=== PATIENT | female | born 1975 | race Two or more races ===

== ENCOUNTER 2023-07-15 15:40 | Outpatient (AMB) | payer OTHER, SELFPAY ==
--- NOTE | 2023-07-15 16:04 | A.OFFPSYCH_ITS ---
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 Allergies nortriptyline Adverse Reaction (Severe, Verified 07/15/23 16:18) Muscle Pain Medication List - Last Reconciled 07/15/23 by Kiarra Martin APRN albuterol sulfate 90 mcg/actuation (Ventolin HFA) inhalation azelastine intranasal baclofen mg PO budesonide-formoterol 80-4.5 mcg/actuation inhalation eszopiclone 3 mg PO BEDTIME PRN lorazepam 1 mg PO BID olanzapine 2.5 mg PO BEDTIME quetiapine 25 mg PO BEDTIME tizanidine 4 mg PO TID valacyclovir 500 mg PO DAILY HPI- Psychiatric Chief Complaint: depression, anxiety HPI Narrative: pt reports taking lunesta- helpful for sleep; pt very depressed, sad, anxious, worried, binge eating at night. no SI or HI . didmnot restart zyprexa 2.5mg yet due to on antibiotic for brinchitis Past Psychiatric History: she has been in and out therapy since age 5-6 yrs old; she has been seeing current therapist since for past 5 yr; no hx of hospitalization Pt dx with depression and PTSD she has had multiple somatic experiences since 11/07/15 including hips hurting, bloating, edema, back spasms, contractions swollen sinuses, fevers, stiffness, double vision, swollen lymph nodes, headaches, light sensitivity, dermographia- she has had multiple work ups by PCP, endocrinology, Infectious disease specialist, Dr. Xavi Burks all of which showed no medical etiology recently dx with fibromyalgia past med trials: trazodone- too sedating and nightmares hydroxyzine- stopped working seroquel- too sedating paxil- sedating prozac-no help zoloft- N& V ativan in past= positive benefit no overuse. seroquel- helpful but sedating and overeating cymbalta- mixed resutls ? efficacy lamictal belsomra lybalvi- good results ambien - helpful hydroxyzine -too sedating lexapro -ineffective Subjective Subjective Subjective Medication Compliance: Yes Side effects from medications: No Review of Systems Medical Review of Systems: unchanged Mental Status Exam Mental Status Exam Patient Appearance: Well Grooomed and Appropriate Patient Orientation: Person, Place, Time and Situation Level of Consciousness: Awake and Alert Patient Behavior: Appropriate and Cooperative Mood Description: Anxious Affect Description: Anxious Patient Cognition Impaired: No Ability to Follow Directions: Good Speech Pattern: Difficulty Finding Words and Soft-Spoken Memory Description: Intact Hallucinations: None Delusions: Not Present Thought Process: Intact Thought Content: positive for Intact and positive for Goal Oriented Judgement: Fair Assessment and Plan Assessment & Plan (1) Panic anxiety syndrome: Status: Acute Code(s): F41.0 - Panic disorder [episodic paroxysmal anxiety] (2) Chronic post-traumatic stress disorder (PTSD): Status: Acute Code(s): F43.12 - Post-traumatic stress disorder, chronic Plan zyprexa 2.5 mg daily lunesta 3 mg at bedtime ativan prn Medications: New lorazepam 1 mg PO BID 60 tabs 0RF Counseling and coordination of Care Pt. Self Management counseling: Maintenance-social rhythm, Sleep hygiene, Cognitive restructuring and General coping skills Medication management counseling: Effectiveness, Side effects, Dosing range, Duration, Drug interaction and Adherence Diagnosis and Prognosis Counseling: Accuracy of diagnosis, Prognosis over time, Impact of diagnosis on life functions, Impact of family relationship, Problematic behaviors secondary to diagnosis and Adequacy of current interventions Details: I spent 30 minutes reviewing the record, seeing the patient and documenting in the medical record. Counseling provided to the patient/caregiver as outlined below. Addressed patient/caregiver concerns regarding current medication regime including effective adherence. Addressed patient/caregiver concerns regarding diagnosis and prognosis including accuracy of diagnosis, prognosis over time, impact of diagnosis. Addressed patient/caregiver concerns regarding impact of recent stressors. [facility] Social History: lives alone Substance History: none Trauma History: yes childhood Coding Level of Care Code Est Pt Level 4 (54979) Diagnoses Panic anxiety syndrome F41.0 Chronic post-traumatic stress disorder (PTSD) F43.12
== END 2023-07-15 16:30 | disposition home or self-care (01) ==
LOC: HO.HOP 15:40
PROVIDERS: PCP Nurse Practitioner Family; Visit Provider Clinical Nurse Specialist Psychiatric/Mental Health
DX: F41.0 Panic disorder [episodic paroxysmal anxiety] (principal); F43.12 Post-traumatic stress disorder, chronic
CPT/HCPCS: 99214

== ENCOUNTER → 2023-07-15 15:40 | Outpatient (BNVA) | payer OTHER, SELFPAY | PROVIDERS: PCP Nurse Practitioner Family; Visit Provider Clinical Nurse Specialist Psychiatric/Mental Health | DX: F41.0 Panic disorder [episodic paroxysmal anxiety] (principal); F43.12 Post-traumatic stress disorder, chronic | CPT/HCPCS: 99212 ==

== ENCOUNTER 2024-01-24 10:05 | Outpatient (AMB) | payer OTHER, SELFPAY ==
--- NOTE | 2024-01-24 10:03 | MHC.OFFVISPS ---
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 Allergies nortriptyline Adverse Reaction (Severe, Verified 07/15/23 16:18) Muscle Pain Medication List - Last Reconciled 01/24/24 by Kiarra Martin APRN albuterol sulfate 90 mcg/actuation (Ventolin HFA) inhalation azelastine intranasal baclofen mg PO budesonide-formoterol 80-4.5 mcg/actuation inhalation eszopiclone 3 mg PO BEDTIME PRN olanzapine 2.5 mg PO BEDTIME tizanidine 4 mg PO TID valacyclovir 500 mg PO DAILY HPI- Psychiatric Chief Complaint: consult follow up HPI Narrative: javad reports struggling with sadness and anxiety; she reports increased interactions with family which are disappointing. Her family does not treat her with vakue. they often say negative things to her and even ognore her. she worries about them and tried to help them but they are not able to reciprocate. pt struggling with GI issues and pain; she sees her PCP today. pt has a pituitary tumor which is slowly increasing in size over the years. no intervention is planned as of yet. no SI or HI. Past Psychiatric History: she has been in and out therapy since age 5-6 yrs old; she has been seeing current therapist since for past 5 yr; no hx of hospitalization Pt dx with depression and PTSD she has had multiple somatic experiences since 11/07/15 including hips hurting, bloating, edema, back spasms, contractions swollen sinuses, fevers, stiffness, double vision, swollen lymph nodes, headaches, light sensitivity, dermographia- she has had multiple work ups by PCP, endocrinology, Infectious disease specialist, Dr. Xavi Burks all of which showed no medical etiology recently dx with fibromyalgia past med trials: trazodone- too sedating and nightmares hydroxyzine- stopped working seroquel- too sedating paxil- sedating prozac-no help zoloft- N& V ativan in past= positive benefit no overuse. seroquel- helpful but sedating and overeating cymbalta- mixed resutls ? efficacy lamictal belsomra lybalvi- good results ambien - helpful hydroxyzine -too sedating lexapro -ineffective Subjective Subjective Subjective Medication Compliance: Yes Side effects from medications: No Review of Systems Medical Review of Systems: unchanged Mental Status Exam Mental Status Exam Patient Appearance: Well Grooomed and Appropriate Patient Orientation: Person, Place, Time and Situation Level of Consciousness: Awake, Appropriate and Alert Patient Behavior: Appropriate and Cooperative Mood Description: Appropriate, Anxious and Sad Affect Description: Sad Patient Cognition Impaired: No Ability to Follow Directions: Good Speech Pattern: Clear and Appropriate Memory Description: Intact Hallucinations: None Delusions: Not Present Thought Process: Intact and Goal Oriented Thought Content: positive for Intact and positive for Goal Oriented Judgement: Good Assessment and Plan Assessment & Plan (1) Chronic post-traumatic stress disorder (PTSD): Status: Acute Code(s): F43.12 - Post-traumatic stress disorder, chronic (2) Panic anxiety syndrome: Status: Acute Code(s): F41.0 - Panic disorder [episodic paroxysmal anxiety] Plan continue medications and resume ativan prn for severe anxiety and insomnia Medications: New lorazepam (Ativan) 1 mg PO DAILY PRN 10 tabs 4RF anxiety 30 days Refilled olanzapine 2.5 mg PO BEDTIME 90 tabs 1RF eszopiclone 3 mg PO BEDTIME PRN 30 tabs 4RF sleep Counseling and coordination of Care Pt. Self Management counseling: Maintenance-social rhythm, Med illness tx adherence, Nutrition education and improvement, Sleep hygiene, Behavior activation, General coping skills and Problem solving Medication management counseling: Effectiveness, Side effects, Dosing range, Duration, Drug interaction and Adherence Diagnosis and Prognosis Counseling: Accuracy of diagnosis, Prognosis over time, Impact of diagnosis on life functions, Impact of family relationship, Problematic behaviors secondary to diagnosis and Adequacy of current interventions Details: I spent 40 minutes reviewing the record, seeing the patient and documenting in the medical record. Counseling provided to the patient/caregiver as outlined below. Addressed patient/caregiver concerns regarding current medication regime including effective adherence. Addressed patient/caregiver concerns regarding diagnosis and prognosis including accuracy of diagnosis, prognosis over time, impact of diagnosis. Addressed patient/caregiver concerns regarding impact of recent stressors. [facility] Social History: lives alone Substance History: none Trauma History: yes childhood Coding Level of Care Code Est Pt Level 4 (44748) Diagnoses Chronic post-traumatic stress disorder (PTSD) F43.12 Panic anxiety syndrome F41.0
== END 2024-01-24 10:52 | disposition home or self-care (01) ==
LOC: HO.HOP 10:05
PROVIDERS: PCP Nurse Practitioner Family; Visit Provider Clinical Nurse Specialist Psychiatric/Mental Health
DX: F43.12 Post-traumatic stress disorder, chronic (principal); F41.0 Panic disorder [episodic paroxysmal anxiety]
CPT/HCPCS: 99214

== ENCOUNTER → 2024-01-24 10:05 | Outpatient (BNVA) | payer OTHER, SELFPAY | PROVIDERS: PCP Nurse Practitioner Family; Visit Provider Clinical Nurse Specialist Psychiatric/Mental Health | DX: F43.12 Post-traumatic stress disorder, chronic (principal); F41.0 Panic disorder [episodic paroxysmal anxiety]; Z71.89 Other specified counseling | CPT/HCPCS: 99212 ==

== ENCOUNTER 2024-06-12 09:50 | Outpatient (AMB) | payer OTHER, SELFPAY ==
--- NOTE | 2024-06-12 10:07 | MHC.OFFVISPS ---
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 Allergies nortriptyline Adverse Reaction (Severe, Verified 07/15/23 16:18) Muscle Pain Medication List - Last Reconciled 06/12/24 by Kiarra Martin APRN albuterol sulfate 90 mcg/actuation (Ventolin HFA) inhalation azelastine intranasal baclofen mg PO budesonide-formoterol 80-4.5 mcg/actuation inhalation eszopiclone 3 mg PO BEDTIME PRN lorazepam (Ativan) 1 mg PO DAILY PRN 30 days olanzapine 2.5 mg PO BEDTIME tizanidine 4 mg PO TID valacyclovir 500 mg PO DAILY HPI- Psychiatric Chief Complaint: depression HPI Narrative: pt here for followup for anxiety and PTSD pt reports improvement PHQ9=9 and GAD7= 5 pt reports able to use coping skills has social support engaged in self care activities no medical changes no side effects no karly, no SI or HI. Past Psychiatric History: she has been in and out therapy since age 5-6 yrs old; she has been seeing current therapist since for past 5 yr; no hx of hospitalization Pt dx with depression and PTSD she has had multiple somatic experiences since 11/07/15 including hips hurting, bloating, edema, back spasms, contractions swollen sinuses, fevers, stiffness, double vision, swollen lymph nodes, headaches, light sensitivity, dermographia- she has had multiple work ups by PCP, endocrinology, Infectious disease specialist, Dr. Xavi Burks all of which showed no medical etiology recently dx with fibromyalgia past med trials: trazodone- too sedating and nightmares hydroxyzine- stopped working seroquel- too sedating paxil- sedating prozac-no help zoloft- N& V ativan in past= positive benefit no overuse. seroquel- helpful but sedating and overeating cymbalta- mixed resutls ? efficacy lamictal belsomra lybalvi- good results ambien - helpful hydroxyzine -too sedating lexapro -ineffective Subjective Subjective Subjective Medication Compliance: Yes Side effects from medications: No Review of Systems Medical Review of Systems: unchanged Mental Status Exam Mental Status Exam Patient Appearance: Well Grooomed and Appropriate Patient Orientation: Person, Place, Time and Situation Level of Consciousness: Awake, Appropriate and Alert Patient Behavior: Appropriate and Cooperative Mood Description: Calm, Happy, Appropriate and Sad (about loss of act and relationship changes) Affect Description: Calm and Appropriate Patient Cognition Impaired: No Ability to Follow Directions: Good Speech Pattern: Clear, Appropriate and Soft-Spoken Memory Description: Intact Hallucinations: None Delusions: Not Present Thought Process: Intact and Goal Oriented Thought Content: positive for Intact, positive for Goal Oriented and positive for Loose Associations Judgement: Fair Assessment and Plan Assessment & Plan (1) Chronic post-traumatic stress disorder (PTSD): Status: Acute Code(s): F43.12 - Post-traumatic stress disorder, chronic (2) Panic anxiety syndrome: Status: Acute Code(s): F41.0 - Panic disorder [episodic paroxysmal anxiety] Medications: Refilled eszopiclone 3 mg PO BEDTIME PRN 30 tabs 4RF sleep olanzapine 2.5 mg PO BEDTIME 90 tabs 1RF Counseling and coordination of Care Pt. Self Management counseling: Maintenance-social rhythm, Mindfulness, Mod caffeine/ETOH intake, Nutrition education and improvement and Problem solving Medication management counseling: Effectiveness, Side effects, Dosing range, Duration, Drug interaction and Adherence Diagnosis and Prognosis Counseling: Accuracy of diagnosis, Prognosis over time, Impact of diagnosis on life functions, Problematic behaviors secondary to diagnosis and Adequacy of current interventions Details: I spent 35 minutes reviewing the record, seeing the patient and documenting in the medical record. Counseling provided to the patient/caregiver as outlined below. Addressed patient/caregiver concerns regarding current medication regime including effective adherence. Addressed patient/caregiver concerns regarding diagnosis and prognosis including accuracy of diagnosis, prognosis over time, impact of diagnosis. Addressed patient/caregiver concerns regarding impact of recent stressors. [facility] Social History: lives alone Substance History: none Trauma History: yes childhood Coding Level of Care Code Est Pt Level 4 (11984) Diagnoses Chronic post-traumatic stress disorder (PTSD) F43.12 Panic anxiety syndrome F41.0
--- OUTSIDE RECORDS SUMMARY | 2024-06-12 10:56 | XMS_ITS | Clinical Summary ---
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 Active erenumab-aooe (Aimovig Autoinjector) 140 mg/mL injection Inject into the skin. Active azelastine (ASTELIN) 137 mcg (0.1 %) nasal spray 137 mcg by Nasal route daily. Active duloxetine HCl (DULOXETINE ORAL) Take 30 mg by mouth daily. Active LORAZEPAM ORAL Take by mouth. Active meloxicam (MOBIC) 15 mg tablet Take 1 Tablet by mouth daily. Active pantoprazole sodium (PANTOPRAZOLE ORAL) Take by mouth. Active cyclobenzaprine (FLEXERIL) 5 mg tabletIndication s:Left shoulder pain, unspecified chronicity Take 1 tablet (5 mg total) by mouth 3 (three) times a day if needed for muscle spasms. 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 (CMS/HCC V24, CMS/HCC V28) 09/10/2023 Encounters Date Type Department Care Team Description 05/01/2024 Telephone Orthopedic Surgery [facility] [address] [facility] [address] [place] [address] Kamila Johnson MA 04/27/2024 4:00 PM EDT Office Visit Orthopedic Surgery [facility] [address] [facility] [address] [place] [address] Barby Rivera MD Left shoulder pain, unspecified chronicity (Primary Dx) 03/31/2024 Telephone Orthopedic Surgery [facility] [address] [facility] [address] [place] [address] Barby Rivera MD Pain Upper Left Arm from Last 3 Months Social History Tobacco Use Types Packs/Day Years Used Date Smoking Tobacco: Never Assessed Comments Unknown Sex and Gender Information Value Date Recorded Sex Assigned at Not on file Legal Sex Female 3:02 PM EST Gender Identity Not on file Sexual Orientation Not on file Last Filed Vital Signs Vital Sign Reading Time Taken Comments Blood Pressure - - Pulse - - Temperature - - Respiratory Rate - - Oxygen Saturation - - Inhaled Oxygen Concentration - - Weight 87.5 kg (193 lb) 04/27/2024 3:50 PM EDT Height 167.6 cm (5' 5.98 ) 04/27/2024 3:50 PM ED T Body Mass Index 31.17 04/27/2024 3:50 PM EDT Plan of Treatment Health Maintenance Due Date Last Done Comments Breast Cancer Screening 1976 DTaP,Tdap,and Td Vaccines (1 - Tdap) 10/04/1995 Hepatitis B Vaccines (1 of 3 - 19+ 3-dose series) 10/04/1995 Cervical Cancer Screening: P ap Smear 1997 Cholesterol Screening (Lipid Panel) 01/07/2022 Colorectal Cancer Screening: Colonoscopy 01/07/2022 Depression Screening 01/07/2022 HIV Screening 01/07/2022 Hepatitis C Screening 01/07/2022 Medicare Annual Wellness Visit 01/07/2022 Social Influencers of Health Screening 01/07/2022 COVID-19 Vaccine (4 - 2023-2 5 season) 2023 01/08/2021, 07/31/2020, 07/10/2020 Influenza Vaccine (Season Ended) 2024 HIB Vaccines Aged Out No longer eligi ble based on patient's age to complete this topic HPV Vaccines Aged Out No longer eligi ble based on patient's age to complete this topic Hepatitis A Vaccines Aged Out No long er eligible based on patient's age to complete this topic IPV Vaccines Aged Out No longer eligi ble based on patient's age to complete this topic MMR Vaccines Aged Out No longer eligi ble based on patient's age to complete this topic Meningococcal ACWY Vaccine Aged Out N o longer eligible based on patient's age to complete this topic Meningococcal B Vaccine Aged Out No l onger eligible based on patient's age to complete this topic Pneumococcal Vaccine: Pediatrics (0 to 5 Years) and At-Risk Patients (6 to 64 Years) Aged Out No longer eligible b ased on patient's age to complete this topic RSV Immunization Patients Under 20 months Aged Out No longer eligible b ased on patient's age to complete this topic Varicella Vaccines Aged Out No longer eligible based on patient's age to complete this topic Insurance [facility] MEDICARE Member Subscriber Plan / Payer (Ef fective 2019-Present) Name:Cristobal Emmanuella Relation to Subscriber:Self Name:Cristobal Emmanuella Payer ID:[id number] Group ID:[id number] Type:Not on file Address: [place] [address] [address] [address] Care 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
--- OUTSIDE RECORDS SUMMARY | 2024-06-12 10:57 | XMS_ITS | Data Portability ---
Author Organization [place] [facility], Allergy Address [address] [place] [id number] Care Team Providers Care Shirt Trimmer Name Role Phone BRAVO PAIGE Primary Care Provider Assessment Encounter Date Assessment Date Assessment LastModified by Organization Details LastModified Time 09/13/2023 09/13/2023 Discussed her symptoms as a likely related to her smoking. Encouraged her to initiate use of nasal saline. She had a [employer] irrigation system at home but had some concern about contamination. She is a self-admitted germaphobe, mild OCD. Smoking cessation also highly encouraged, she will make an attempt by her birthday later this month to complete smoking cessation. She is also concerned about some swelling of the soft tissue over her nose. She has met with video recorder mechanic in the past who pointed out she has hyperpigmentation over her malar region which is benign. I do not believe there is any underlying pathology of the swelling of her soft tissue over her nose, perhaps may be it represents aging changes. By the end of the visit she was pleased with the outcome and wishes to follow-up as needed [email or web address] Not available 09/13/2023 15:02:53 Plan of Treatment Reminders Order Date Submit Date Provider Last Modified By Organization Details Last Modified Time Details Appointments None record ed. Lab None record ed. Referral None record ed. Procedures None record ed. Surgeries None record ed. Imaging None record ed. Medication Orders None record ed. Patient TargetsNo targets recorded. Patient InstructionsNo instructions recorded. Reason for Referral None Reported. Results Created Date Observation Date Name Description Value Unit Range Abnormal Flag Note LastModifiedBy Organization Detail LastModifiedTime 09/29/19 24 10/10/2019 imagi ng/di agnos tic resul t No observ ation record ed. [email or web address] Not Available 21:36:43 Result Notes None recorded. 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 ; Note: Date Diagnosed : 09/10/2017 10:06 AM (L50.3) Not Available [facility] 4 02:31:00 Otalgia of right ear 4800124193 Active 2020 Otalgia, right ear; Note: Date Diagnosed : 11/05/2020 2:27 PM (H92.01) Not Available [facility] 4 02:30:47 Pain of right temporoma ndibular joint 51020764650 883308 Active 2020 Arthralgi a of right temporoma ndibular joint; Note: Date Diagnosed : 11/05/2020 2:37 PM (M26.621) Not Available [facility] 4 02:30:38 Headache 60024499 Active 2016 Facial pain NOS; Note: Date Diagnosed : 12/14/2016 2:15 PM (R51) Not Available [facility] 4 02:30:51 Allergic rhinitis 65777889 Active 2019 Allergic rhinitis, unspecifi ed; Note: Date Diagnosed : 05/16/2019 3:40 PM (J30.9) Not Available [facility] 4 02:30:39 Nasal congestio n 76308594 Active 2016 Nasal congestio n; Note: Date Diagnosed : 12/14/2016 2:15 PM (R09.81) Not Available [facility] 4 02:30:51 Posterior rhinorrhe a 88036937 Active 2022 Postnasal drip; Note: Date Diagnosed : 03/09/2022 1:33 PM (R09.82) Not Available [facility] 4 02:30:43 Bilateral disorder of Eustachia n tubes 53480467405 51931 Active 2019 Other specified disorders of Eustachia n tube, bilateral ; Note: Date Diagnosed : 08/01/2019 3:22 PM (H69.83) Not Available [facility] 4 02:30:40 Migraine 60605129 Active 2016 Other migraine, not intractab le, without status migrainos us; Note: Date Diagnosed : 12/14/2016 4:11 PM (G43.809) Not Available [facility] 4 02:30:42 Tobacco dependenc e caused by cigarette s 85515505595 216539 Active 2023 ASHU FUENTES MD [address] [place] [address], [place], [address] , [facility] - [facility] 4 15:01:28 Problem Notes None recorded. Procedures Surgical History None recorded. Imaging Results Imaging Date Name Status LastModified by Organiz ation Details LastModified Time 10/10/2019 imaging/diag nostic result completed [email or web address] Information not available 09/29/2023 21:36:43 Procedure Notes None recorded. Medical Equipment None Reported. Medications Name Sig Start Date Stop Date Status Note LastModified by Organization Details LastModified Time quetiapine 25 mg tablet TAKE 1 TABLET BY MOUTH EVERYDAY AT BEDTIME active Not Available Not Available No t Available cyclobenza daniel 10 mg tablet TAKE 1 TABLET BY MOUTH EVERYDAY AT BEDTIME active Not Available Not Available No t Available prednisone 10 mg tablet PLEASE SEE ATTACHED FOR DETAILED DIRECTION S active Not Available Not Available No t Available doxycyclin e hyclate 100 mg capsule TAKE 1 CAPSULE BY MOUTH TWICE A DAY FOR 7 DAYS active Not Available Not Available No t Available cetirizine 10 mg tablet TAKE 1 TABLET BY MOUTH TWICE A DAY FOR 7 DAYS active Not Available Not Available No t Available azithromyc in 250 mg tablet TAKE 2 TABLETS BY MOUTH EVERY DAY FOR 1 DAY THEN TAKE 1 TABLET DAILY FOR 4 DAYS active Not Available Not Available No t Available ibuprofen 800 mg tablet TAKE 1 TABLET BY MOUTH THREE TIMES A DAY NEEDED FOR PAIN FOR 10 DAYS active Not Available Not Available No t Available tizanidine 4 mg tablet TAKE 1 TAB UP TO 3 TIMES A DAY NEEDED FOR MUSCLE SPASMS/ CRAMPS. DO NOT DRIVE active Not Available Not Available No t Available fluconazol e 150 mg tablet TAKE 1 TABLET BY MOUTH FOR 1 DAY active Not Available Not Available No t Available clarithrom ycin 500 mg tablet TAKE 1 TABLET BY MOUTH EVERY 12 HOURS FOR 10 DAYS active Not Available Not Available No t Available meloxicam 15 mg tablet TAKE 1 TABLET BY MOUTH EVERY DAY WITH A MEAL active Not Available Not Available No t Available prednisone 20 mg tablet TAKE 2 TABLETS BY MOUTH EVERY DAY FOR 5 DAYS active Not Available Not Available No t Available valacyclov ir 500 mg tablet TAKE 1 TABLET BY MOUTH EVERY DAY active Not Available Not Available No t Available sulfametho xazole 800 mg-trimeth oprim 160 mg tablet TAKE 1 TABLET BY MOUTH TWICE A DAY FOR 10 DAYS active Not Available Not Available No t Available olanzapine 2.5 mg tablet TAKE ONE TABLET IN AM WITH FOOD active Not Available Not Available No t Available doxycyclin e monohydrat e 100 mg tablet TAKE 1 TABLET (ORAL) 2 TIMES PER DAY FOR 7 DAYS CAN CAUSE EXTREME SENSITIVI TY TO THE SUN. active Not Available Not Available No t Available topiramate 25 mg sprinkle capsule TAKE 1 CAPSULE BY MOUTH AT BEDTIME active Not Available Not Available No t Available nicotine (polacrile x) 4 mg gum CHEW 1 EVERY 2 HOURS NEEDED FOR SMOKING CESSATION active Not Available Not Available No t Available nortriptyl ine 10 mg capsule TAKE ONE CAP AT NIGHT FOR 5 NIGHTS AND INCREASE TO TWO CAPS AT NIGHT IF NEEDED FOR PAIN active Not Available Not Available No t Available clotrimazo le-betamet hasone 1 %-0.05 % topical cream APPLY TO AFFECTED & SURROUNDI NG AREA TWICE A DAY FOR 2 WEEKS TOPICALLY IN THE MORNING AND EVENING active Not Available Not Available No t Available lorazepam 1 mg tablet TAKE 1 TABLET TWICE DAILY NEEDED FOR ANXIETY (HOLD FOR SEDATION OR DIZZINESS ) active Not Available Not Available No t Available azelastine 137 mcg (0.1 %) nasal spray SPRAY 2 SPRAYS IN BOTH NOSTRILS ONCE DAILY NEEDED FOR ALLERGIES active Not Available Not Available No t Available methylpred nisolone 4 mg tablets in a dose pack TAKE 6 TABLETS ON DAY 1 DIRECTED ON PACKAGE AND DECREASE BY 1 TAB EACH DAY FOR A TOTAL OF 6 DAYS active Not Available Not Available No t Available ipratropiu m bromide 42 mcg (0.06 %) nasal spray PLEASE SEE ATTACHED FOR DETAILED DIRECTION S active Not Available Not Available No t Available fluticason e propionate 50 mcg/actuat ion nasal spray,susp ension 2019 active Medicatio n ID: [id number] Du ration Value: 30 Brand Name: fluticaso ne propionat e Send Method: E-Prescri bed Subs Allowed: subs OK Specia l Instructi on: USE 1 SPRAY IN EACH NOSTRIL TWICE A DAY Medic ationGene ricName: fluticaso ne propionat e Not Available Not Available Not Available naratripta n 2.5 mg tablet TAKE 1 TABLET BY MOUTH ONCE NEEDED FOR MIGRAINE HEADACHE (MAY REPEAT ONCE IN 4 HOURS IF NEEDED) active Not Available Not Available No t Available Ventolin HFA 90 mcg/actuat ion aerosol inhaler TAKE 2 PUFFS BY MOUTH EVERY 6 HOURS NEEDED WHEEZING/ SHORTNESS OF BREATH active Not Available Not Available No t Available Allergy Relief D12 5 mg-120 mg tablet,ext ended release TAKE 1 TABLET BY MOUTH EVERY 12 HOURS FOR 10 DAYS active Not Available Not Available No t Available duloxetine 30 mg capsule,de layed release TAKE 1 CAPSULE BY MOUTH AT NIGHT FOR 5 DAYS FOR PAIN MAY INCREASE TO 2 CAPSULES AT NIGHT IF NEEDED active Not Available Not Available No t Available eszopiclon e 3 mg tablet TAKE 1 TABLET (3 MG) BY MOUTH ONE TIME AT BEDTIME active Not Available Not Available No t Available PreviDent 5000 Sensitive 1.1 %-5 % dental paste PLEASE SEE ATTACHED FOR DETAILED DIRECTION S active Not Available Not Available No t Available budesonide -formotero l HFA 80 mcg-4.5 mcg/actuat ion aerosol inhaler INHALE 2 PUFFS 2 TIMES A DAY, NEEDED FOR WHEEZE/SH ORTNESS OF BREATH,IN STR:J45 active Not Available Not Available No t Available lamotrigin e ER 100 mg tablet,ext ended release 24 hr 2019 active Medicatio n ID: [id number] Du ration Value: 90 Brand Name: lamotrigi ne Send Method: E-Prescri bed Subs Allowed: subs OK Specia l Instructi on: TAKE 1 TABLET BY MOUTH EVERY MORNING M edication GenericNa me: lamotrigi ne Not Available Not Available Not Available baclofen 5 mg tablet TAKE 1 TABLET BY MOUTH THREE TIMES A DAY active Not Available Not Available No t Available Aimovig Autoinject or 140 mg/mL subcutaneo us auto-injec tor 140 MG SUBCUTANE OUS INJECTION EVERY 28 DAYS active Not Available Not Available No t Available Lybalvi 5 mg-10 mg tablet TAKE 1 TABLET DAILY active Not Available Not Available No t Available Vitals Date Recorded Body height Body mass index (BMI) Body weight Provider Name and Address Organization Details Last Updated DateTime 09/13/2023 167.64 cm 30.7 kg/m2 34189.55 g Fide Gallegos [place] - [facility] 09/13/2023 14:40:22 Social History None recorded. Functional Status None recorded. Mental Status None recorded. Family History Nothing Reported. Medical History No medical history recorded. Gynecological HistoryNo gynecological history recorded. Obstetrics History GPAL:G 0 P 0 0 0 0 Past Encounters Encounter ID Performer Location Encounter Start Date Encounter Closed Date Diagnosis/Indication Diagnosis SNOMED-CT Code Diagnosis ICD10 Code Diagnosis Note [id number] ASHU FUENTES MD [facility] [address] [phone] 09/13/2023 14:04:09 09/13/2023 15:02:08 Posterior rhinorrhea 51019733 R09.82 Tobacco de pendence caused by cigarettes 0593701935 4048165 F17.210 Health Concerns Section Related Observation LastModified by Organization Detai ls LastModified Time None Recorded Concern Status LastModified by Organization Details LastModified Time None Recorded Advance Directives Directive None Recorded Payers Encounter Date Sequence Insurance Name Policy Number Policy Lebron Covered Member ID Lebron Member ID Guarantor Name 09/13/2023 1 [facility] - DOS ON OR AFTER 2022 - MEDICARE ADVANTAGE [place] (MEDICARE REPLACEMENT/ADV ANTAGE - PPO) Lorelei Emmanuel [id number] Lorelei Emmanuel Notes Date Note Type Note Provider Name and Address Organization Details Recorded Time 09/13/2023 text/html swollen skin ove r dorsum of nose.sees urgent care in [place] for sinus infections.sx of white mucus PNDclears up with ABx for 3+ months 10/04/2019 ct temporal bone xoran -mastoid air cells are clear, few opacified right-sided ethmoid air cells. 05/04/2019 RAST positive for birch, niurka nut, dust, [place] grass, hickory tree, oak - pt declined immunotherapy in past previous trial of atrovent, azelastine pmhx - migraine and neuralgiatobacco - 1/2ppdenrolling in acupuncture, drinking more waterbusy caring for her mother who was just dx with breast ca ASHU FUENTES MD [address] [place] [address],[place] [address], [place], [address], [place] - [facility] 09/13/2023 15:03:06 OBGyn Episode No OBEpisode recorded.
--- OUTSIDE RECORDS SUMMARY | 2024-06-12 10:57 | XMS_ITS | Data Portability ---
Author Organization [employer] [facility], Ut in - [facility] Address [address] [place] [phone] Care Team Providers Care Pairer Substandard Name Role Phone HIM CCA OTHER Assessment Encounter Date Assessment Date Assessment LastModified by Organization Details LastModified Time 03/11/2024 03/11/2024 I provided real -time medical direction via phone for this encounter and was available for additional phone-based assistance as needed. I have reviewed and agree with the Assessment and Plan as documented by the Offset Machine Operator. Patient given the opportunity to ask questions. Our service contacted for an assessment of: Viral URI symptoms and right ear pain As per above, patient with approximately several days of viral URI symptoms and developed into right ear pain. Denies fever or chills. Denies chest pain, shortness of breath, dyspnea on exertion. Positive nasal congestion and dry cough. Positive sick contacts. Per lab analyst on the scene, vital signs are stable and patient is afebrile. No wheezing heard on exam. COVID and Flu are both negative. No increased work of breathing and no distress. Impression: Common cold and viral URI Plan: Continue with [id number] medications to control symptoms. Red flags discussed as to when to seek a higher level care. Allergies: Reviewed PCP f/u: We discussed the diagnostic uncertainty of home visits and the risk associated with this. In this case, the patient and I felt this to be an acceptable and reasonable amount of risk given the benefit of avoiding an ED visit. We discussed the need to seek care urgently/emergen tly in the setting of any new or worsening serious symptoms, particularly fever chills [email or web address] Not available 03/11/2024 15:35:12 Plan of Treatment Reminders Order Date Submit Date Provider Last Modified By Organization Details Last Modified Time Details Appointments None recorded. Lab rapid SARS CoV 2 Ag, QL IA, respiratory specimen 2024 025 [facility], [address] [place] [address], [phone] 5 21:48:55 rapid flu (A+B) 2024 025 Critical access hospital, [address] [place] [address], [phone] 5 21:49:11 rapid SARS CoV 2 Ag, QL IA, respiratory specimen [address], [address] [place] [address], [id number] 5 15:33:38 rapid flu (A+B) [address], [address] [place] [address], [phone] 15:33:38 Referral None recorded. Procedures None recorded. Surgeries None recorded. Imaging None recorded. Medication Orders amoxicillin 875 mg-potassiu m clavulanate 125 mg tablet 2024 025 [id number] [address] [place], [address], 5 20:12:06 amoxicillin 875 mg-potassiu m clavulanate 125 mg tablet 2024 025 [facility] [address] [place], [address], 5 20:12:04 Lactobacill us acidophilus 1 billion cell tablet 2024 025 [id number] [address] [place], [address], 5 20:12:06 acetaminoph en 500 mg tablet 2024 025 [facility] [address] [place], [address], 5 20:12:04 acetaminoph en 325 mg tablet 2024 025 [id number] [address] [facility] [place], [address], 20:12:07 amoxicillin 875 mg tablet [address] [id number], [address] [place], [address], 15:33:39 Patient TargetsNo targets recorded. Patient InstructionsNo instructions recorded. Reason for Referral None Reported. Results Created Date Observation Date Name Description Value Unit Range Abnormal Flag Note LastModifiedBy Organization Detail LastModifiedTime 03/11/1903/11/2024 rapid flu (A+B) Flu negati ve Not Available [facility] ed [address] [place] [address], [phone] 03/11/2024 15:32:29 03/11/19 25 03/11/2024 rapid SARS CoV 2 Ag, QL IA, respi rator y speci men rapid SARS CoV 2 Ag, QL IA, respiratory specimen negati ve Not Available [facility] ed [address] [place] [address], [phone] 03/11/2024 15:32:28 Result Notes None recorded. Medical Equipment None Reported. Allergies Allergen ID Allergen Name Allergen Category Reaction Reaction Severity Criticality Documentation Date Start Date Code Code System Note Provider Name and Address Organization Details Recorded Time 39296 nortripty line medicatio n Not available Not available Not available 03/11/2024 7531 RxNorm Not Available [facility] - production 09:37:31 Medications Name Sig Start Date Stop Date Status Note LastModified by Organization Details LastModified Time quetiapine 25 mg tablet TAKE 1 TABLET BY MOUTH EVERYDAY AT BEDTIME active Not Available Not Available No t Available acetaminophe n 325 mg tablet TAKE 2 TABLETS BY MOUTH EVERY 6 HOURS NEEDED FOR 5 DAYS active Not Available Not Available No t Available prednisone 10 mg tablet TAKE 5 TABS BY MOUTH X 2 DAYS THEN DECREASE BY 1 TAB EVERY 2 DAYS UNTIL COMPLETE active Not Available Not Available No t Available azithromycin 250 mg tablet TAKE 2 TABLETS BY MOUTH EVERY DAY FOR 1 DAY THEN TAKE 1 TABLET DAILY FOR 4 DAYS active Not Available Not Available No t Available ibuprofen 800 mg tablet TAKE 1 TABLET BY MOUTH THREE TIMES A DAY NEEDED FOR PAIN FOR 10 DAYS active Not Available Not Available Not Available tizanidine 4 mg tablet TAKE 1 TAB UP TO 3 TIMES A DAY NEEDED FOR MUSCLE SPASMS/ CRAMPS. DO NOT DRIVE active Not Available Not Available No t Available fluconazole 150 mg tablet TAKE 1 TABLET BY MOUTH ONCE. TAKE ADDITIONAL TABLET ORALLY, IF SYMPTOMS DONT IMPROVE IN 72 HOURS active Not Available Not Available No t Available meloxicam 15 mg tablet TAKE 1 TABLET BY MOUTH EVERY DAY active Not Available Not Available No t Available valacyclovir 500 mg tablet TAKE 1 TABLET BY MOUTH EVERY DAY active Not Available Not Available No t Available sulfamethoxa zole 800 mg-trimethop rim 160 mg tablet TAKE 1 TABLET BY MOUTH EVERY 12 HOURS FOR 10 DAYS active Not Available Not Available Not Available olanzapine 2.5 mg tablet TAKE 1 TABLET BY MOUTH BEDTIME active Not Available Not Available No t Available doxycycline monohydrate 100 mg tablet TAKE 1 TABLET (ORAL) 2 TIMES PER DAY FOR 7 DAYS CAN CAUSE EXTREME SENSITIVITY TO THE SUN. active Not Available Not Available Not Available amoxicillin 875 mg tablet TAKE 1 TABLET BY MOUTH EVERY 12 HOURS FOR 5 DAYS active Not Available Not Available N ot Available famotidine 20 mg tablet PLEASE SEE ATTACHED FOR DETAILED DIRECTIONS active Not Available Not Available N ot Available doxycycline monohydrate 100 mg capsule active Not Available Not Available Not Available pantoprazole 40 mg tablet,delay ed release TAKE 1 TABLET BY MOUTH TWICE A DAY active Not Available Not Available No t Available nystatin 100,000 unit/gram topical cream APPLY TO INFRAMAMMAR Y AREA TWICE DAILY NEEDED UNTIL CONTROLLED THEN WEAN OFF. active Not Available Not Available No t Available clotrimazole -betamethaso ne 1 %-0.05 % topical cream APPLY TO AFFECTED & SURROUNDING AREA TWICE A DAY FOR 2 WEEKS TOPICALLY IN THE MORNING AND EVENING active Not Available Not Available No t Available hydrocortiso ne 2.5 % topical cream APPLY TO INFRAMAMMAR Y AREA TWICE A DAY NEEDED FLARES, DECREASE SYMPTOMS IMPROVE active Not Available Not Available No t Available lorazepam 1 mg tablet TAKE 1 TABLET BY MOUTH DAILY NEEDED FOR ANXIETY FOR 30 DAYS active Not Available Not Available Not Available azelastine 137 mcg (0.1 %) nasal spray SPRAY 2 SPRAYS IN BOTH NOSTRILS ONCE DAILY NEEDED FOR ALLERGIES active Not Available Not Available No t Available methylpredni solone 4 mg tablets in a dose pack TAKE 6 TABLETS ON DAY 1 DIRECTED ON PACKAGE AND DECREASE BY 1 TAB EACH DAY FOR A TOTAL OF 6 DAYS active Not Available Not Available No t Available albuterol sulfate HFA 90 mcg/actuatio n aerosol inhaler TAKE 2 PUFFS BY MOUTH EVERY 6 HOURS NEEDED WHEEZING/SH ORTNESS OF BREATH active Not Available Not Available No t Available naratriptan 2.5 mg tablet TAKE 1 TABLET BY MOUTH ONCE NEEDED FOR MIGRAINE HEADACHE. MAY REPEAT ONCE IN 4 HOURS IF NEEDED active Not Available Not Available No t Available chlorhexidin e gluconate 4 % topical liquid APPLY TO GROIN 2-3X A WEEK active Not Available Not Available No t Available ipratropium bromide 21 mcg (0.03 %) nasal spray INSTILL 2 SPRAYS INTO EACH NOSTRIL DAILY AT BEDTIME active Not Available Not Available No t Available amoxicillin 875 mg-potassium clavulanate 125 mg tablet TAKE 1 TABLET BY MOUTH TWICE A DAY FOR 7 DAYS active Not Available Not Available No t Available tobramycin 0.3 %-dexamethas one 0.1 % eye drops,suspen fidencio INSTILL 1 DROP INTO BOTH EYES FOUR TIMES A DAY SHAKE WELL active Not Available Not Available No t Available cyclobenzapr ine 5 mg tablet TAKE 1 TABLET BY MOUTH 3 TIMES A DAY IF NEEDED FOR MUSCLE SPASMS. active Not Available Not Available No t Available Allergy Relief D12 5 mg-120 mg tablet,exten ded release TAKE 1 TABLET BY MOUTH EVERY 12 HOURS FOR 10 DAYS active Not Available Not Available Not Available duloxetine 30 mg capsule,sheila yed release TAKE 1 CAPSULE BY MOUTH AT NIGHT FOR 5 DAYS FOR PAIN MAY INCREASE TO 2 CAPSULES AT NIGHT IF NEEDED active Not Available Not Available No t Available eszopiclone 3 mg tablet TAKE 1 TABLET BY MOUTH BEDTIME NEEDED FOR SLEEP active Not Available Not Available No t Available Lactobacillu s acidophilus 1 billion cell tablet Take 1 tablet twice a day by oral route for 14 days. 2024 active Not Available Not Available Not Avai lable tizanidine 4 mg capsule TAKE 1 CAPSULE BY MOUTH EVERY DAY AT BEDTIME FOR 90 DAYS active Not Available Not Available No t Available budesonide-f ormoterol HFA 80 mcg-4.5 mcg/actuatio n aerosol inhaler INHALE 2 PUFFS 2 TIMES A DAY, NEEDED FOR WHEEZE/SHOR TNESS OF BREATH,INST R:J45 active Not Available Not Available No t Available diclofenac 1 % topical gel USE 2 GRAMS TOPICALLY 4 TIMES A DAY active Not Available Not Available Not Available Readi-Cat 2 2 % (w/v) oral suspension DRINK 1 BOTTLE 6 HRS BEFORE YOUR TEST AND THE SECOND BOTTLE 90 MINUTES BEFORE TEST active Not Available Not Available Not Available baclofen 5 mg tablet TAKE 1 TABLET BY MOUTH THREE TIMES A DAY active Not Available Not Available Not Available Aimovig Autoinjector 140 mg/mL subcutaneous auto-injecto r 140 MG SUBCUTANEOU S INJECTION EVERY 28 DAYS active Not Available Not Available No t Available Vitals Date Recorded Body weight Respiratory rate Heart rate Body height Oxygen saturation Oxygen saturation in Arterial blood by Pulse oximetry Body temperature Systolic blood pressure Diastolic blood pressure Provider Name and Address Organization Details Last Updated DateTime 5 76550.6 64 g 16 /min 66 /min 167.64 cm 97 % 97 % 99.1 [degF] 124 mm[Hg] 90 mm[Hg] Not Available [employer] 5 12:54:29 Date Recorded Body weight Body temperature Respiratory rate Body height Heart rate Oxygen saturation Oxygen saturation in Arterial blood by Pulse oximetry Systolic blood pressure Diastolic blood pressure Provider Name and Address Organization Details Last Updated DateTime 5 19269.6 g 98.4 [degF] 14 /min 167.64 cm 68 /min 98 % 98 % 129 mm[Hg] 80 mm[Hg] Not Available [employer] 5 20:06:30 Social History None recorded. Functional Status None recorded. Mental Status None recorded. Family History Nothing Reported. Medical History No medical history recorded. Gynecological HistoryNo gynecological history recorded. Obstetrics History GPAL:G 0 P 0 0 0 0 Past Encounters Encounter ID Performer Location Encounter Start Date Encounter Closed Date Diagnosis/Indication Diagnosis SNOMED-CT Code Diagnosis ICD10 Code Diagnosis Note [id number] Radha Chase MD [facility] [address] [place] [phone] 03/11/2024 12:35:15 03/14/2024 16:19:10 Acute otitis media 7485743 H66.91 [id number] MATHIEU DRAKE MD [facility] [address] [place] [phone] 05/24/2024 19:47:57 05/24/2024 21:08:42 Acute right otitis media 707917537 H66.91 Evaluation in the field was performed by my lab analyst colleague, as noted above, I provided real-time direction and supervisio n for this visit. The evaluation revealed 48-year-ol d female with a history of fibromyalg ia, migraine headaches, and frequent sinus infections who presents with right-side d ear pain for over 10 days, worse on the right than the left. She reports a sensation of fullness in the right ear, associated with a fluid-lik e sound. She also endorses post-nasal drip, cough, and nasal congestion with white sputum production . She denies fever, chills, or vomiting but reports experienci ng mild nausea. The patient has been self-manag ing with nasal sprays and warm compresses , but symptoms persist. VS : BP 129/ 80, HR 68 , RR 14, SpO2 98%, Room Air at RestTemper atures 98.4 ? ? ?FExam : Alert, awake, oriented, in no acute distress .No facial swelling or erythemaNo external ear swelling or erythema.N o drainage in the ear canal.Tymp anic membrane with decreased light reflex; fluid noted behind the eardrum, consistent with middle ear effusion. Lungs: Clear to auscultati onAllergie s reviewed Impression :Acute Otitis Media (right greater than left) Plan:-Augm entin 875/125 mg: Initiated for treatment of acute otitis media. First dose administer ed by the lab analyst. Patient instructed to continue taking one tablet orally twice daily for 7 days.-Acet aminophen 1 gram: Administer ed to help alleviate pain. Prescripti on sent to the patient? s pharmacy for ongoing pain management as needed.-Leandro bates advised to continue using nasal sprays (e.g., intranasal corticoste roids or decongesta nts) to reduce Eustachian tube congestion .-Lactobac illus probiotic: Prescripti on sent to the pharmacy to help support gut bakari during antibiotic use.-Red flag symptoms discussed, including fever, ear drainage, increased ear pain, or hearing loss.-Yuli ent advised to follow up with primary care provider if no improvemen t is noted within 48? 7 2 hours, or sooner if symptoms worsen. Primary care, consider__ _ Dispositio n: We discussed the diagnostic uncertaint y of home visits and the risk associated with this. In this case, the patient and I felt this to be an acceptable and reasonable amount of risk given the benefit of avoiding an ED visit. We discussed the need to seek care urgently/e mergently in the setting of any new or worsening serious symptoms, particular ly fever, ear drainage, increased ear pain, or hearing loss Health Concerns Section Related Observation LastModified by Organization Detai ls LastModified Time None Recorded Concern Status LastModified by Organization Details LastModified Time None Recorded Advance Directives Directive None Recorded Payers Encounter Date Sequence Insurance Name Policy Number Policy Lebron Covered Member ID Lebron Member ID Guarantor Name 03/11/2024 1 [facility] - DOS ON OR AFTER 2022 - DUAL ELIGIBLE - [facility] OPTIONS AND ONE CARE (MEDICARE REPLACEMENT/ADV ANTAGE - HMO) Lorelei Emmanuel [id number] Lorelei Emmanuel 05/24/2024 1 [facility] - DOS ON OR AFTER 2022 - DUAL ELIGIBLE - [facility] OPTIONS AND ONE CARE (MEDICARE REPLACEMENT/ADV ANTAGE - HMO) Lorelei Emmanuel [id number] Lorelei Emmanuel Notes Date Note Type Note Provider Name and Address Organization Details Recorded Time 03/11/2024 text/html HPI: Member calling in with c/o cold symptoms that started . Feels like she is getting worse. Member with c/o chills, weakness, cough, congestion, and right ear pain. .................... .................... .................... .................... .................... .................... .................... . [facility] Nurse Triage Notes (Jaskaran Odom - RN): Chief Complaints: Common cold symptoms, Cough PMH: Fibromyalgia, Asthma, Bipolar Disorder, Migraine PMH Reviewed at 03/11/2024:37 Allergies Reviewed at 03/11/2024 - 09:37 Comments: Reviewed HPI Offset Machine Operator Organization Information for Tony Herron Business Legal Name: [employer].? Address: [address] [place] [id number], Asset Protection Officer: Jimmy HARPER No.: [id number] Offset Machine Operator POC Test Results from Tony Herron Rapid COVID antigen (13:05:48) COVID: - Attachments uploaded as part of this test result can be found under Documents section. Rapid influenza antigen (13:05:49) Flu: - Attachments uploaded as part of this test result can be found under Documents section. .................... .................... .................... .................... .................... .................... .................... . Offset Machine Operator Note From Tony Herron: 48 yo F c/o R-sided ear pain, and CABRAL x 2 days. Pt states very productive cough with of white phlegm. She reports coughing up about two 23oz of phlegm between yesterday and today. Pt also reports weakness, and tiredness. Pt c/o chills, body aches, unknown on fever. Postnasal drip (mucus dripping down your throat), runny nose, Stuffy nose facial pressure, pressure or pain in your teeth, ear pressure or pain. Cough. Headache. Tiredness. Last sinus infection Dec. Pt denies CP, ABD, N/V/D Assessment: Facial tenderness. Lungs clear, slight congestions upper. No BLE edema. Pt speaks in full sentences. Pt reports history of: Chronic otitis media or Sinusitis. Fibromyalgia Asthma Allergies: Nortriptyline. Tylenol upsets her. Pharmacy: [address] [place] Jasper Kessler MD Consult: 10 Days of Amoxicillin. Norma Selser cold and flu Dayquil. Rx called in. Discussed red flags with pt. .................... .................... .................... .................... .................... .................... .................... . [facility] Consulted: Radha Chase .................... .................... .................... .................... .................... .................... .................... . Disposition: Fulfilled Radha Chase MD [address] [place] [address],[address], [place], [phone], [place] [facility] [email or web address] 03/11/2024 15:35:35 05/24/2024 text/html [facility] Nurse Triage Notes (Kary Naidu): Reason For Request: ear pain Patient Reports: External Ear concerns Denies: Sudden onset of dental pain, unable to manage own secretions Nosebleed lasting longer than one hour; unable to stop bleeding Throat swelling/difficult swallowing Dental pain and fever, able to maintain secretions Sinus infection Conjunctivitis Chief Complaints: Ear Complaint PMH: Fibromyalgia, Asthma, Bipolar Disorder, Migraine PMH Reviewed at 05/24/2024 - 19: Allergies Reviewed at 05/24/2024 - : Comments: 48 y.o female complains of Ear Complaint Pt calling for right ear pain for over 1.5 weeks . She also has pain on left but less. She feels that the ear is swollen, painful/ with fluid sound. She has post nasal drip. She does have a cough, with congestion white sputum. She denies any fever/chills/ vomiting. She did have mild nausea. She has been using nasal sprays. She has not taken anything else OTC, She has been using warm compresses. She does get frequent sinus infections. Allergies > pt does not know her allergies I provided information on the mobile health provider response time and advised the patient and/or caregiver to monitor reported signs and symptoms. I discussed the warning signs of when to seek emergency care. Offset Machine Operator Organization Information for Srinivasa Paz WISHI Legal Name: [facility] Address: [address] [place] [address], [place] [address], Asset Protection Officer: Danilo Delacruz MD KOFFI No.: [id number] Offset Machine Operator POC Test Results from Srinivasa Paz Rapid COVID antigen (20:07:22) COVID: - Rapid influenza antigen (20:07:22) Flu: - .................... .................... .................... .................... .................... .................... .................... . Offset Machine Operator Note From Srinivasa Paz: Patient alert and oriented complaints of bilateral ear pain times 10 days. Patient reports history of ear infections. Patient also complains of nasal congestion and in frequent nonproductive cough. Patient denies nausea, vomiting, diarrhea, fever chills, or any other pain or complaint. Patient pink warm and dry secondary exam unremarkable negative increase worker breathing positive full sentences abdomen soft, nontender extremities unremarkable. Pictures of ears in documents. [facility] orders Augmentin Tylenol PO now and will prescribe more to patient local pharmacy. Red flags patient education discussed. Patient demonstrates understanding of care plan. [facility] Lab Orders: rapid SARS CoV 2 Ag, QL IA, respiratory specimen: Performed rapid flu (A+B): Performed [facility] Medication Orders: amoxicillin 875 mg-potassium clavulanate 125 mg tablet: Administered acetaminophen 500 mg tablet: Administered .................... .................... .................... .................... .................... .................... .................... . [facility] Consulted: Mathieu Drake .................... .................... .................... .................... .................... .................... .................... . Disposition: Fulfilled MATHIEU DRAKE MD [address] [place] [address],[address], [place], [phone], [employer] 05/24/2024 20:40:10 OBGyn Episode No OBEpisode recorded.
== END 2024-06-12 11:15 | disposition home or self-care (01) ==
LOC: HO.HOP 09:50
PROVIDERS: PCP Nurse Practitioner Family; Visit Provider Clinical Nurse Specialist Psychiatric/Mental Health
DX: F43.12 Post-traumatic stress disorder, chronic (principal); F41.0 Panic disorder [episodic paroxysmal anxiety]
CPT/HCPCS: 99214

== ENCOUNTER → 2024-06-12 09:50 | Outpatient (BNVA) | payer OTHER, SELFPAY | PROVIDERS: PCP Nurse Practitioner Family; Visit Provider Clinical Nurse Specialist Psychiatric/Mental Health | DX: F43.12 Post-traumatic stress disorder, chronic (principal); F41.0 Panic disorder [episodic paroxysmal anxiety] | CPT/HCPCS: 99212 ==

== ENCOUNTER 2024-09-18 13:56 | Outpatient (AMB) | payer OTHER, SELFPAY ==
--- NOTE | 2024-09-18 14:12 | MHC.OFFVISPS ---
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 Allergies nortriptyline Adverse Reaction (Severe, Verified 07/15/23 16:18) Muscle Pain Medication List - Last Reconciled 09/18/24 by Kiarra Martin APRN albuterol sulfate 90 mcg/actuation (Ventolin HFA) inhalation azelastine intranasal baclofen mg PO budesonide-formoterol 80-4.5 mcg/actuation inhalation duloxetine 30 mg PO QPM eszopiclone 3 mg PO BEDTIME PRN hydroxyzine HCl 25 mg PO QID PRN lorazepam (Ativan) 1 mg PO DAILY PRN 30 days olanzapine 2.5 mg PO BEDTIME tizanidine 4 mg PO TID valacyclovir 500 mg PO DAILY HPI- Psychiatric Chief Complaint: f/u consultation HPI Narrative: pt here for followup for anxiety and PTSD pt reports very high stress Her apartment has had a water leak and she has mold and increased bugs her intellectual property counsel has been slow to remedy but she finally called corporate and they are fixing. pt has good support she started w new therapsit at [facility] in [place] PHQ9=10 and GAD7= 12 pt reports able to use coping skills engaged in self care activities in rx for fibromylagia again(cymbalta PT and cortisone inj) no side effects no karly, no SI or HI. Past Psychiatric History: she has been in and out therapy since age 5-6 yrs old; she has been seeing current therapist since for past 5 yr; no hx of hospitalization Pt dx with depression and PTSD she has had multiple somatic experiences since 11/07/15 including hips hurting, bloating, edema, back spasms, contractions swollen sinuses, fevers, stiffness, double vision, swollen lymph nodes, headaches, light sensitivity, dermographia- she has had multiple work ups by PCP, endocrinology, Infectious disease specialist, Dr. Xavi Burks all of which showed no medical etiology recently dx with fibromyalgia past med trials: trazodone- too sedating and nightmares hydroxyzine- stopped working seroquel- too sedating paxil- sedating prozac-no help zoloft- N& V ativan in past= positive benefit no overuse. seroquel- helpful but sedating and overeating cymbalta- mixed resutls ? efficacy lamictal belsomra lybalvi- good results ambien - helpful hydroxyzine -too sedating lexapro -ineffective Subjective Subjective Subjective Medication Compliance: Yes Side effects from medications: No Review of Systems Medical Review of Systems: unchanged Mental Status Exam Mental Status Exam Patient Appearance: Well Grooomed and Appropriate Patient Orientation: Person, Place, Time and Situation Level of Consciousness: Awake, Appropriate and Alert Patient Behavior: Appropriate and Cooperative Mood Description: Calm, Happy, Appropriate and Sad (about loss of act and relationship changes) Affect Description: Calm and Appropriate Patient Cognition Impaired: No Ability to Follow Directions: Good Speech Pattern: Clear, Appropriate and Soft-Spoken Memory Description: Intact Hallucinations: None Delusions: Not Present Thought Process: Intact and Goal Oriented Thought Content: positive for Intact, positive for Goal Oriented and positive for Loose Associations Judgement: Fair Assessment and Plan Assessment & Plan (1) Chronic post-traumatic stress disorder (PTSD): Status: Acute Code(s): F43.12 - Post-traumatic stress disorder, chronic (2) Panic anxiety syndrome: Status: Acute Code(s): F41.0 - Panic disorder [episodic paroxysmal anxiety] Medications: Refilled olanzapine 2.5 mg PO BEDTIME 90 tabs 1RF eszopiclone 3 mg PO BEDTIME PRN 30 tabs 4RF sleep Discontinued lorazepam (Ativan) Discontinued Reason: Duplicate 1 mg PO DAILY 30 days PRN 10 tabs 4RF anxiety Counseling and coordination of Care Pt. Self Management counseling: Maintenance-social rhythm, Mindfulness, Mod caffeine/ETOH intake, Nutrition education and improvement and Problem solving Medication management counseling: Effectiveness, Side effects, Dosing range, Duration, Drug interaction and Adherence Diagnosis and Prognosis Counseling: Accuracy of diagnosis, Prognosis over time, Impact of diagnosis on life functions, Problematic behaviors secondary to diagnosis and Adequacy of current interventions Details: I spent 38 minutes reviewing the record, seeing the patient and documenting in the medical record. Counseling provided to the patient/caregiver as outlined below. Addressed patient/caregiver concerns regarding current medication regime including effective adherence. Addressed patient/caregiver concerns regarding diagnosis and prognosis including accuracy of diagnosis, prognosis over time, impact of diagnosis. Addressed patient/caregiver concerns regarding impact of recent stressors. PFSH Social History: lives alone Substance History: none Trauma History: yes childhood Coding Level of Care Code Est Pt Level 4 (90774) Diagnoses Chronic post-traumatic stress disorder (PTSD) F43.12 Panic anxiety syndrome F41.0
--- OUTSIDE RECORDS SUMMARY | 2024-09-18 14:24 | XMS_ITS | Clinical Summary ---
Author Organization [address] [facility] Address [address] [place] [address] Phone Care Team Providers Care Cemetery Workers Supervisor Name Role Phone Tony Jarvis NP Primary Care Provider [phone] Medications eszopiclone (LUNESTA ORAL) Take by mouth. [...] tunnel syndrome 09/10/2023 Class 1 obesity 09/10/2023 [place] of toe 09/10/2023 Esophageal stricture 09/10/2023 Herpes simplex 09/10/2023 Insomnia 09/10/2023 Obsessive compulsive disorder 09/10/2023 PTSD (post-traumatic stress disorder) 09/10/2023 Severe manic bipolar 1 disor taco with psychotic behavior (CMS/HCC V24, CMS/HCC V28) 09/10/2023 Social History Tobacco Use Types Packs/Day Years [...] 04/27/2024 3:50 PM EDT Plan of Treatment Upcoming Encounters Date Type Department Care Team (Late st Contact Info) Description 09/19/2024 9:45 AM EDT Office Visit Orthopedic Surgery - [place] [address] [phone] Ebenezer Presley, DPM [address] [address] Health Maintenance Due Date Last Done Comments Breast Cancer Screening 1976 DTaP,Tdap,and Td Vaccines (1 - Tdap) 10/04/1995 Hepatitis B Vaccines (1 of 3 - 19+ 3-dose series) 10/04/1995 Cervical Cancer Screening: P ap Smear 1997 Cholesterol Screening (Lipid Panel) 01/07/2022 Colorectal Cancer Screening: Colonoscopy 01/07/2022 HIV Screening 01/07/2022 Hepatitis C Screening 01/07/2022 Medicare Annual Wellness Visit 01/07/2022 Social Influencers of Health Screening 01/07/2022 COVID-19 Vaccine ( - 2023-2 5 season) 2023 01/08/2021, 07/31/2020, 07/10/2020 Depression Screening 02/09/2024 Influenza Vaccine (#1) 2024 HIB Vaccines Aged Out No longer [...] 5 Years) and At-Risk Patients (6 to 49 Years) Aged Out No longer eligible b ased on patient's age to complete this topic RSV Immunization Patients Under 20 months Aged Out No longer eligible b ased on patient's age to complete this topic Varicella Vaccines Aged Out No longer eligible based on patient's age to complete this topic Insurance [employer] Member Subscriber Plan / Payer (Ef fective 2019-Present) Name:FELIX EMMANUEL Relation to Subscriber:Self Name:Felix Emmanuel Payer ID:[id number] Group ID:[id number] Type:Not on file Address: [place] [address] [address] Care Teams Cemetery Workers Supervisor Relationship Specialty Start Date End Date Tony Jarvis NP [address] [place], [place] [id number] PCP - General 07/01/23
== END 2024-09-18 14:36 | disposition home or self-care (01) ==
LOC: HO.HOP 13:56
PROVIDERS: PCP Nurse Practitioner Family; Visit Provider Clinical Nurse Specialist Psychiatric/Mental Health
DX: F43.12 Post-traumatic stress disorder, chronic (principal); F41.0 Panic disorder [episodic paroxysmal anxiety]
CPT/HCPCS: 99214

== ENCOUNTER → 2024-09-18 13:56 | Outpatient (BNVA) | payer OTHER, SELFPAY | PROVIDERS: PCP Nurse Practitioner Family; Visit Provider Clinical Nurse Specialist Psychiatric/Mental Health | DX: F43.12 Post-traumatic stress disorder, chronic (principal); F41.0 Panic disorder [episodic paroxysmal anxiety] | CPT/HCPCS: 99212 ==

== ENCOUNTER 2024-12-11 13:53 | Outpatient (AMB) | payer OTHER, SELFPAY ==
--- NOTE | 2024-12-11 13:59 | MHC.OFFVISPS ---
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 Allergies nortriptyline Adverse Reaction (Severe, Verified 07/15/23 16:18) Muscle Pain Medication List - Last Reconciled 12/11/24 by Kiarra Martin APRN albuterol sulfate 90 mcg/actuation (Ventolin HFA) inhalation azelastine intranasal baclofen mg PO budesonide-formoterol 80-4.5 mcg/actuation inhalation duloxetine 30 mg PO QPM eszopiclone 3 mg PO BEDTIME PRN hydroxyzine HCl 25 mg PO QID PRN methimazole 10 mg PO BID olanzapine 2.5 mg PO BEDTIME pantoprazole 40 mg PO BID tizanidine 4 mg PO TID valacyclovir 500 mg PO DAILY HPI- Psychiatric Chief Complaint: f/u consultation HPI Narrative: pt here for followup for anxiety and PTSD pt reports very high stress She was recently dx with Graves Diseasept not sleeping; takes the lunesta every 3 days because stops working if daily 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 she is seeing Ifeoma at [facility] in [place] for therapy PHQ9=15 and GAD7= 9 pt reports able to use coping skills engaged in self care activities pt stopped the cymbalta because she felt not helpful. no karly, no SI or HI. Past Psychiatric History: she has been in and out therapy since age 5-6 yrs old; she has been seeing current therapist since for past 5 yr; no hx of hospitalization Pt dx with depression and PTSD she has had multiple somatic experiences since 11/07/15 including hips hurting, bloating, edema, back spasms, contractions swollen sinuses, fevers, stiffness, double vision, swollen lymph nodes, headaches, light sensitivity, dermographia- she has had multiple work ups by PCP, endocrinology, Infectious disease specialist, Dr. Xavi Burks all of which showed no medical etiology recently dx with fibromyalgia past med trials: trazodone- too sedating and nightmares hydroxyzine- stopped working seroquel- too sedating paxil- sedating prozac-no help zoloft- N& V ativan in past= positive benefit no overuse. seroquel- helpful but sedating and overeating cymbalta- mixed resutls ? efficacy lamictal belsomra lybalvi- good results ambien - helpful hydroxyzine -too sedating lexapro -ineffective Subjective Subjective Medication Compliance: Yes Side effects from medications: No Review of Systems Medical Review of Systems: unchanged Mental Status Exam Mental Status Exam Patient Appearance: Well Grooomed and Appropriate Patient Orientation: Person, Place, Time and Situation Level of Consciousness: Awake, Appropriate and Alert Patient Behavior: Appropriate, Cooperative and Anxious Mood Description: Calm, Appropriate, Anxious and Sad (about loss of act and relationship changes) Affect Description: Calm, Appropriate, Anxious and Sad Patient Cognition Impaired: No Ability to Follow Directions: Good Speech Pattern: Clear, Appropriate and Soft-Spoken Memory Description: Intact Hallucinations: None Delusions: Not Present Thought Process: Intact and Goal Oriented Thought Content: positive for Intact, positive for Goal Oriented and positive for Loose Associations Judgement: Fair Assessment and Plan Assessment & Plan (1) Chronic post-traumatic stress disorder (PTSD): Status: Acute Code(s): F43.12 - Post-traumatic stress disorder, chronic (2) Panic anxiety syndrome: Status: Acute Code(s): F41.0 - Panic disorder [episodic paroxysmal anxiety] Plan continue hydroxyzine trial of trazodone 12.5mg to 25 mg at bedtiem (has tried in past but too sedating at 50mg) continue olanzepine Medications: New trazodone 25 mg (1/2 x 50 mg) PO BEDTIME PRN 90 tabs 0RF sleep Refilled olanzapine 2.5 mg PO BEDTIME 90 tabs 1RF eszopiclone 3 mg PO BEDTIME PRN 30 tabs 4RF sleep hydroxyzine HCl 25 mg PO QID PRN 120 tabs 4RF itch Counseling and coordination of Care Pt. Self Management counseling: Maintenance-social rhythm, Mindfulness, Mod caffeine/ETOH intake, Nutrition education and improvement and Problem solving Medication management counseling: Effectiveness, Side effects, Dosing range, Duration, Drug interaction and Adherence Diagnosis and Prognosis Counseling: Accuracy of diagnosis, Prognosis over time, Impact of diagnosis on life functions, Problematic behaviors secondary to diagnosis and Adequacy of current interventions Details: I spent 35 minutes reviewing the record, seeing the patient and documenting in the medical record. Counseling provided to the patient/caregiver as outlined below. Addressed patient/caregiver concerns regarding current medication regime including effective adherence. Addressed patient/caregiver concerns regarding diagnosis and prognosis including accuracy of diagnosis, prognosis over time, impact of diagnosis. Addressed patient/caregiver concerns regarding impact of recent stressors. PFSH Social History: lives alone Substance History: none Trauma History: yes childhood Coding Level of Care Code Est Pt Level 4 (50959) Diagnoses Chronic post-traumatic stress disorder (PTSD) F43.12 Panic anxiety syndrome F41.0
== END 2024-12-11 15:12 | disposition home or self-care (01) ==
LOC: HO.HOP 13:53
PROVIDERS: PCP Nurse Practitioner Family; Visit Provider Clinical Nurse Specialist Psychiatric/Mental Health
DX: F43.12 Post-traumatic stress disorder, chronic (principal); F41.0 Panic disorder [episodic paroxysmal anxiety]
CPT/HCPCS: 99214

== ENCOUNTER → 2024-12-11 13:53 | Outpatient (BNVA) | payer OTHER, SELFPAY | PROVIDERS: PCP Nurse Practitioner Family; Visit Provider Clinical Nurse Specialist Psychiatric/Mental Health | DX: F43.12 Post-traumatic stress disorder, chronic (principal); F41.0 Panic disorder [episodic paroxysmal anxiety]; E05.00 Thyrotoxicosis with diffuse goiter without thyrotoxic crisis or storm; M79.7 Fibromyalgia | CPT/HCPCS: 99212 ==

== ENCOUNTER 2025-01-18 16:42 | Outpatient (AMB) | payer OTHER, SELFPAY ==
--- OUTSIDE RECORDS SUMMARY | 2025-01-15 09:00 | XMS_ITS | Encounter Summary ---
Author Organization [facility] Address [address] [place] [address] Care Team Providers Care Art Education Professor Name Role Phone Tony Jarvis NP Primary Care Provider [phone] Reason for Visit * Reason Comments Follow-up Possible infection Encounter Details Date Type Department Care Team ([facility] st Contact Info) Description 01/15/2025 9:00 AM EST Office Visit Orthopedic Surgery - [place] [address] [address] Ebenezer Presley DPM [address] [phone] Dermatophytosis of nail (Primary Dx); Ingrowing nail; Acquired unequal limb length; Metatarsalgia of left foot Social History Tobacco Use Types Packs/Day Years Used Date Smoking Tobacco: Never Assessed Comments Unknown Sex and Gender Information Value Date Recorded Sex Assigned at Not on file Legal Sex Female 3:02 PM EST Gender Identity Not on file Sexual Orientation Not on file documented as of this encounter Progress Notes * Ebenezer Presley DPM - 01/15/2025 9:00 AM EST Tejal Emmanuel is a 49 y.o. year old female presents new complaint of worsening pain discomfort left great toe with redness swelling i has resolved she is finished course of oral antibiotics as well as topical medication does not she has a history of limb length discrepancy with the left longer than her right does note that her other toenails do curl improved with topical medication ROS: GENERAL: Pt denies nausea, fever, vomiting, chills, or shortness of breath. Pt in NAD. CARDIOLOGY: pt denies chest pain, palpitations LUNGS: pt denies shortness of breath MUSCULOSKELETAL: See HPI, otherwise no joint pain or swelling, back pain, or muscle pain. 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 ALLERGIES: Allergies Allergen Reactions Nortriptyline Topiramate PHYSICAL EXAM: There were no vitals taken for this visit. PODIATRIC EXAMINATION: GENERAL: Patient appears well nourished, with NAD. VASCULAR: Dorsalis pedis pulses are 2/4 bilaterally and Posterior tibial pulses are 2/4 bilaterally. Capillary filling time within normal limits the digits. No pallor on elevation or rubor on dependency. No varicosities. Denies rest pain or claudication pain. NEUROLOGICAL: Sharp/dull sensation intact, protective sensation intact 10/10 with Ipswitch touch test bilaterally, vibratory sensation intact to the tibial tuberosity. ORTHOPEDIC: Good muscle strength 5/5 of all flexors and extensors. Dorsi flexion of ankle ,10 degrees, plantar flexion WNL. No muscle atrophy. Limb length discrepancy with right short to left foot from history of pelvis surgery and young age DERMATOLOGICAL:.Resolved ingrown embedded toenail left great toe Abnormal curvature remaining digits with elongated abnormal curvature ALT 9 toenails BIOMECHANICS: Ankle ROM WNL, STJ ROM wnl, MTJ ROM wnl, 1st MPJ ROM wnl. IMAGING: IMPRESSION: 1. Dermatophytosis of nail 2. Ingrowing nail 3. Acquired unequal limb length 4. Metatarsalgia of left foot PLAN: Pt was seen and examined, history reviewed. Additional minor surgical options were discussed and reviewed for chronic recurring ingrown nails for lesser digits patient seems to think about it was very happy with her left foot Treatment options were discussed and reviewed including stretching exercises demonstrated for patient anti-inflammatory medications steroid injections orthotics and insoles Recommendations given for prefabricated insoles Referral offered physical therapy patient declined Prescription given for anti-inflammatory medication Offloading padding dispensed from clinic Ketoconazole can continue with Follow-up in 4 to 6 weeks Ebenezer Presley DPM documented in this encounter Plan of Treatment Upcoming Encounters Date Type Department Care Team (Late st Contact Info) Description 07/16/2025 8:30 AM EDT Office Visit Orthopedic Surgery - [place] [address] [phone] Ebenezer Presley DPM [address] [phone] documented as of this encounter Visit Diagnoses Diagnosis Dermatophytosis of nail- Primary Ingrowing nail Acquired unequal limb length Metatarsalgia of left foot documented in this encounter Care Teams Art Education Professor Relationship Specialty Start Date End Date Tony Jarvis NP [address] [place] [address] PCP - General 07/01/23 documented as of this encounter
--- NOTE | 2025-01-18 13:49 | MHC.OFFVISPS ---
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: No Allergies nortriptyline Adverse Reaction (Severe, Verified 07/15/23 16:18) Muscle Pain Medication List - Last Reconciled 01/18/25 by Kiarra Martin APRN albuterol sulfate 90 mcg/actuation (Ventolin HFA) inhalation azelastine intranasal baclofen mg PO budesonide-formoterol 80-4.5 mcg/actuation inhalation eszopiclone 3 mg PO BEDTIME PRN hydroxyzine HCl 25 mg PO QID PRN methimazole 10 mg PO BID olanzapine 2.5 mg PO BEDTIME pantoprazole 40 mg PO BID tizanidine 4 mg PO TID trazodone 25 mg (1/2 x 50 mg) PO BEDTIME PRN valacyclovir 500 mg PO DAILY HPI- Psychiatric Chief Complaint: F/U CONSULTATION HPI Narrative: pt seen via telehealth session for followup for anxiety and PTSD pt seen sooner than scheduled due to not sleeping pt reports paradoxical effect from trazodone- reports feels like she's had a cup of coffee after she takes it. She resumed the lunesta and it works if she takes it only every other night. She is seeing endocrinology who reports her hormone levels are reduced. She is seeing Lisa at [facility] in [place] for therapy pt reports able to use coping skills engaged in self care activities no karly, no SI or HI. Past Psychiatric History: she has been in and out therapy since age 5-6 yrs old; she has been seeing current therapist since for past 5 yr; no hx of hospitalization Pt dx with depression and PTSD she has had multiple somatic experiences since 11/07/15 including hips hurting, bloating, edema, back spasms, contractions swollen sinuses, fevers, stiffness, double vision, swollen lymph nodes, headaches, light sensitivity, dermographia- she has had multiple work ups by PCP, endocrinology, Infectious disease specialist, Dr. Xavi Burks all of which showed no medical etiology recently dx with fibromyalgia past med trials: trazodone-stimulating, paradoxical effect hydroxyzine- stopped working seroquel- too sedating paxil- sedating prozac-no help zoloft- N& V ativan in past= positive benefit no overuse. seroquel- helpful but sedating and overeating cymbalta- mixed resutls ? efficacy lamictal belsomra jtvi- good results ambien - helpful hydroxyzine -too sedating lexapro -ineffective Subjective Subjective Medication Compliance: Yes Side effects from medications: Yes (trazodone- waking up more after taking) Review of Systems Medical Review of Systems: unchanged Mental Status Exam Mental Status Exam Patient Appearance: Well Grooomed and Appropriate Patient Orientation: Person, Place, Time and Situation Level of Consciousness: Awake, Appropriate and Alert Patient Behavior: Appropriate, Cooperative and Anxious Mood Description: Calm, Appropriate, Anxious and Sad (about loss of act and relationship changes) Affect Description: Calm, Appropriate, Anxious and Sad Patient Cognition Impaired: No Ability to Follow Directions: Good Speech Pattern: Clear, Appropriate and Soft-Spoken Memory Description: Intact Hallucinations: None Delusions: Not Present Thought Process: Intact and Goal Oriented Thought Content: positive for Intact, positive for Goal Oriented and positive for Loose Associations Judgement: Fair Telehealth Telehealth Telehealth Platform: POKKT Location of provider rendering services: practice address Location of patient: address on file Patient Identification confirmed using: Name, : Yes Telehealth method: video Patient verbally consented to treatment: Yes Patient verbally consented to billing insurance company: Yes Patient informed of any privacy concerns related to visit: Yes Minutes spent on Phone/Video with Pt.: 15 Assessment and Plan Assessment & Plan (1) Chronic post-traumatic stress disorder (PTSD): Status: Acute Code(s): F43.12 - Post-traumatic stress disorder, chronic (2) Panic anxiety syndrome: Status: Acute Code(s): F41.0 - Panic disorder [episodic paroxysmal anxiety] Plan stop trazodone take hydroxyzine at 7 pm take lunesta 3 mg at 9pm continue olanzapine as current benefits outweigh risks Counseling and coordination of Care Pt. Self Management counseling: Maintenance-social rhythm, Mindfulness, Mod caffeine/ETOH intake, Nutrition education and improvement and Problem solving Medication management counseling: Effectiveness, Side effects, Dosing range, Duration, Drug interaction and Adherence Diagnosis and Prognosis Counseling: Accuracy of diagnosis, Prognosis over time, Impact of diagnosis on life functions, Problematic behaviors secondary to diagnosis and Adequacy of current interventions Details: I spent 22 minutes reviewing the record, seeing the patient and documenting in the medical record. Counseling provided to the patient/caregiver as outlined below. Addressed patient/caregiver concerns regarding current medication regime including effective adherence. Addressed patient/caregiver concerns regarding diagnosis and prognosis including accuracy of diagnosis, prognosis over time, impact of diagnosis. Addressed patient/caregiver concerns regarding impact of recent stressors. PFSH Social History: lives alone Substance History: none Trauma History: yes childhood Coding Level of Care Code Tele Est Pt Level 3 (47576) Diagnoses Chronic post-traumatic stress disorder (PTSD) F43.12 Panic anxiety syndrome F41.0
--- OUTSIDE RECORDS SUMMARY | 2025-01-18 23:24 | XMS_ITS | Clinical Summary ---
Author Organization 175 [facility] Address [address] [place] [address] Phone Care Team Providers Care Applied Researcher Name Role Phone Tony Jarvis NP Primary Care Provider [phone] Allergies Active Allergy Reactions Criticality Noted Date Comments Nortriptyline 11/22/2024 Topiramate 11/22/2024 Medications eszopiclone (LUNESTA ORAL) Take by mouth. [...] pantoprazole sodium (PANTOPRAZOLE ORAL) Take by mouth. Activ e cyclobenzaprine (FLEXERIL) 5 mg tabletIndications :Left shoulder pain, unspecified chronicity Take 1 tablet (5 mg total) by mouth 3 (three) times a day if needed for muscle spasms. 20 tablet 3 5 Active silver sulfADIAZINE (Silvadene) 1 % cream Apply topically 1 (one) time each day. 50 g 5 09/20/19 26 Active ketoconazole (NIZORAL) 2 % cream Apply topically 1 (one) time each day. 30 g 2 5 Active ketoconazole (NIZORAL) 2 % cream Apply topically 1 (one) time each day. 30 g 2 5 Active Active Problems Problem Noted Date Diagnosed Date Arthralgia 09/10/2023 Benign headache 09/10/2023 Cervicalgia 09/10/2023 Carpal tunnel syndrome 09/10/2023 Class 1 obesity 09/10/2023 [place] of toe 09/10/2023 Esophageal stricture 09/10/2023 Herpes simplex 09/10/2023 Insomnia 09/10/2023 Obsessive compulsive disorder 09/10/2023 PTSD (post-traumatic stress disorder) 09/10/2023 Severe manic bipolar 1 disorder with psychotic b ehavior 09/10/2023 Encounters Date Type Department Care Team Description 01/15/2025 9:00 AM EST Office Visit Orthopedic [facility] [address] [address] Ebenezer Presley DPM Dermatophytosis of nail (Primary Dx); Ingrowing nail; Acquired unequal limb length; Metatarsalgia of left foot 11/22/2024 2:15 PM EDT Office Visit Orthopedic [facility] [address] [address] Ebenezer Presley DPM Dermatophytosis of nail (Primary Dx); Ingrowing nail; Acquired unequal limb length; Metatarsalgia of left foot from Last 3 Months Social History Tobacco [...] 07/16/2025 8:30 AM EDT Office Visit Orthopedic [facility] [address] [address] Ebenezer Presley DPM [address] [address] Health Maintenance Due Date Last Done Comments Breast Cancer Screening 1976 Colorectal Cancer Screening: Colonoscopy 1976 Drug Screen 1976 Non-Opioid Controlled Substance Agreement 1976 DTaP,Tdap,and Td Vaccines (1 - Tdap) 10/04/1995 Hepatitis B Vaccines (1 of 3 - 19+ 3-dose series) 10/04/1995 Cervical Cancer Screening: P ap Smear 1997 Cholesterol Screening (Lipid Panel) 01/07/2022 HIV Screening 01/07/2022 Hepatitis C Screening 01/07/2022 Medicare Annual Wellness Visit 01/07/2022 Social Influencers of Health Screening 01/07/2022 Depression Screening 02/09/2024 COVID-19 Vaccine (4 - 2024-2 6 season) 2024 01/08/2021, 07/31/2020, 07/10/2020 Influenza Vaccine (#1) 2024 RSV Immunization Adult Patients (1 - 1-dose 75+ series) 10/04/2051 HIB Vaccines Aged Out No longer eligi [...] Plan / Payer (Ef fective 2019-Present) Name:FELIX EMMNAUEL Relation to Subscriber:Self Name:Felix Emmanuel Payer ID:[id number] Group ID:[id number] Type:Not on file Address: [place] [address] [address] [address] Care Teams Applied Researcher Relationship Specialty Start Date End Date Tony Jarvis NP [address] [place] [address] PCP - General 07/01/23
--- OUTSIDE RECORDS SUMMARY | 2025-01-18 23:24 | XMS_ITS | Data Portability ---
Author Organization [place] - [facility], Allergy Address [address] [facility] [address] [place] [phone] Care Team Providers Care Creche Attendant Name Role Phone BRAVO PAIGE Primary Care [...] over her nose. She has met with pin sorter and bagger in the past who pointed out she [...] Name and Address Organization Details Recorded Time Headache [id number] Active 2016 Facial pain NOS; Note: Date Diagnosed : 12/14/2016 2:15 PM (R51) Not Available [facility], [facility] 4 02:30:51 Nasal congestio n 54971459 Active 2016 Nasal congestio n; Note: Date Diagnosed : 12/14/2016 2:15 PM (R09.81) Not Available [facility], [facility] 4 02:30:51 Migraine 79970660 Active 2016 Other migraine, not intractab le, without status migrainos us; Note: Date Diagnosed : 12/14/2016 4:11 PM (G43.809) Not Available [facility], [facility]–1983 4 02:30:42 Dermatogr aphic urticaria 1083660 Active 2017 Dermatogr aphic urticaria ; Note: Date Diagnosed : 09/10/2017 10:06 AM (L50.3) Not Available [facility], [facility] 4 02:31:00 Allergic rhinitis 64391786 Active 2019 Allergic rhinitis, unspecifi ed; Note: Date Diagnosed : 05/16/2019 3:40 PM (J30.9) Not Available [facility], [facility] 4 02:30:39 Bilateral disorder of Eustachia n tubes 50890215774 51632 Active 2019 Other specified disorders of Eustachia n tube, bilateral ; Note: Date Diagnosed : 08/01/2019 3:22 PM (H69.83) Not Available [facility], [facility] 4 02:30:40 Otalgia of right ear 8440347754 Active 2020 Otalgia, right ear; Note: Date Diagnosed : 11/05/2020 2:27 PM (H92.01) Not Available [facility] 4 02:30:47 Pain of right temporoma ndibular joint 07075410771 445494 Active 2020 Arthralgi a of right temporoma ndibular joint; Note: Date Diagnosed : 11/05/2020 2:37 PM (M26.621) Not Available [facility], [facility] 4 02:30:38 Posterior rhinorrhe a 86120131 Active 2022 Postnasal drip; Note: Date Diagnosed : 03/09/2022 1:33 PM (R09.82) Not Available [facility], [facility] 4 02:30:43 Tobacco dependenc e caused by cigarette s 25936955458 335986 Active 2023 ASHU FUENTES MD [address] [place] [address], [facility] [place], [address] , [facility] - [facility] 4 15:01:28 Problem Notes None recorded. Medical Equipment None Reported. [...] spray,susp ension 2019 active Medicatio n ID: [id number] Du ration Value: 30 Brand Name: fluticaso [...] 24 hr 2019 active Medicatio n ID: [id number] Du ration Value: 90 Brand Name: marisol bonilla Send Method: E-Prescri bed Subs Allowed: subs [...] Updated DateTime 09/13/2023 167.64 cm 30.7 kg/m2 67035.55 g Fide Gallegos [place] - [facility] 09/13/2023 14:40:22 Social History None recorded. Functional Status None recorded. Mental Status None recorded. Family History Nothing Reported. Medical History No medical history recorded. Gynecological HistoryNo gynecological history recorded. Obstetrics History GPAL:G 0 P 0 0 0 0 Past Encounters Encounter ID Performer Location Encounter Start Date Encounter Closed Date Diagnosis/Indication Diagnosis SNOMED-CT Code Diagnosis ICD10 Code Diagnosis IMO Codes Diagnosis Note [id number] ASHU FUENTES MD [facility] [address] [place] [address] 09/13/2023 14:04:09 09/13/2023 15:02:08 Posterior rhinorrhea 05776516 R09.82 Tobacco de pendence caused by cigarettes 6714239075 0996626 F17.210 Health Concerns Section Related Observation LastModified by Organization Detai ls LastModified Time None Recorded Concern Status LastModified by Organization Details LastModified Time None Recorded Advance Directives Directive None Recorded Payers Insurance Date Sequence Insurance Name Policy Number Policy Lebron Covered Member ID Lebron Member ID Guarantor Name 09/13/2023 1 [facility] - DOS ON OR AFTER 2022 - MEDICARE ADVANTAGE [place] (MEDICARE REPLACEMENT/ADV ANTAGE - PPO) Lorelei Emmanuel [id number] Lorelei Emmanuel Notes Date Note Type Note Provider Name and Address Organization Details Recorded Time 09/13/2023 text/html ROS as noted in the HPI swollen skin over dorsum of nose.sees urgent care in [place] for sinus infections.sx of white mucus PNDclears [...] dx with breast ca ASHU FUENTES MD [address] [facility],[place] [address], [place], [address], [facility] - [facility] 09/13/2023 15:03:06 OBGyn Episode No OBEpisode recorded.
--- OUTSIDE RECORDS SUMMARY | 2025-01-18 23:24 | XMS_ITS | Data Portability ---
Author Organization [place] - [facility] Address [address] [place] [address] Care Team Providers Care Oral Surgeon Name Role Phone BRAVO PAIGE Primary Care Provider Unavailable Dentist Unavailable Assessment Encounter Date Assessment Date Assessment LastModified by Organization Details LastModified Time 01/10/2021 01/10/2021 Overview/History : 45 YO F new to [facility] and provider. W/o notable PMH. Has white patch on tongue. Has seen dentist for this. Has been prescribed chlorhexidine and clotrimazole troches for this condition w/ some effectiveness but the thrush s still present. Been ongoing for a few months of worse. patient does not have sore throat or trouble swallowing. Denies fevers/chills, sore throat, difficulty swallowing. Has hx of thrush diagnosed by dentist and it has been an on and off issue for her for years. She has f/u w/ them next week. Exam: Vitals: VSS Constitutional: 45 yo Well developed, well nourished, pleasant patient in no apparent distress. Nontoxic appearing. Eyes: PERRL at 4mm, EOM's intact, No swelling, no discharge, sclera / conjunctiva clear ENT: White patches of thrush on the tongue, slightly friable with a tongue depressor, none noted in oropharynx, no nasal discharge, no erythema/ exudate noted in oropharynx, moist mucous membranes Pulm: Speaks in full sentences, no increased work of breathing. MS: Self ambulatory patient, moves all limbs without deficit, no evidence of trauma Neuro: No focal deficits Skin: No rash. Visible skin CDI. Psych: Calm, cooperative, non-manic DDx considered, but not limited to: thrush, lichen planus (oral), leukoplakia Work up/Results: N/a Plan/Discussion: Oral thrush: -Friable white patch on tongue, likley thrush -Has seen dentist in past for this and has trilaed chlorhexidine oral jennifer'n and clotrimazole trouches with some improvement but not full resolution. -Pt has taken diflucan in past and likely will need some more aggressive therapy to tx infection explained that this can help w/ oral infection, she is willing to trial this med (200 mg loading dose x 1 100 mg pill daily for a week total). If no resolution f/u with dental which she says he has appt in a week and a half -F/u emergently w/ difficulty swallowing, abd pain, N/V -Educated that mouth breathing and stress can contribute to worsening sx's, pt has recently been displaced from apartment and is living in a temporary space which she has been in for months. additionally she does report she is getting a mouth guard to help w/ snoring. WE also discussed reducing stress. hopefully these measures will help. -Discussed that if this therapy fails she may require oral culture by dentist in order to determine if she has resistant aby infection and to prescribe appropriate therapy for her. She verbalizes understanding. She agrees with the plan and is very appreciate of care today. crumplik Not available 01/10/2021 17:35:46 Plan of Treatment Reminders Order Date Submit Date Provider Last Modified By Organization Details Last Modified Time Details Appointments None recorded. Lab None recorded. Referral None recorded. Procedures None recorded. Surgeries None recorded. Imaging None recorded. Medication Orders fluconazole 100 mg tablet 2020 021 [facility]/Pharmacy #[id number], [phone] [place], [address], 17:13:52 Patient TargetsNo targets recorded. Patient InstructionsNo instructions recorded. Reason for Referral None Reported. Procedures Surgical History Date Name Laterality Status Provider Name and Address Organization Details Recorded Time Cholecystectomy completed VALERIO Mai [address] [place], [address], [place] - [facility] 01/10/2021 16:50:38 Appendectomy completed VALERIO Miguel [address], [place], [address], [place] [facility] 01/10/2021 16:50:44 Imaging Results None recorded. Procedure Notes None recorded. Medical Equipment None Reported. Allergies No known drug allergies Medications Name Sig Start Date Stop Date Status Note LastModified by Organization Details LastModified Time quetiapine 25 mg tablet 01/10 completed Not Available Not Available Not Available fluconazole 100 mg tablet Take 1 tablet every day by oral route as directe d. active Not Available Not Available No t Available clotrimazole 10 mg coraozn active Not Available Not Available Not Available doxycycline hyclate 100 mg capsule 01/10 completed Not Available Not Available Not Available cetirizine 10 mg tablet active Not Available Not Available No t Available azithromycin 250 mg tablet active Not Available Not Availabl e Not Available fluconazole 150 mg tablet 01/10 completed Not Available Not Available Not Available acyclovir 400 mg tablet 01/10 completed Not Available Not Available Not Available olanzapine 2.5 mg tablet 01/10 completed Not Available Not Available Not Available dexamethasone 0.5 mg/5 mL oral solution active Not Available Not Availabl e Not Available lorazepam 0.5 mg tablet active Not Available Not Available No t Available baclofen 10 mg tablet active Not Available Not Available No t Available tobramycin 0.3 % eye drops active Not Available Not Available Not Available gabapentin 100 mg capsule active Not Available Not Available Not Available fluticasone propionate 50 mcg/actuation nasal spray,suspens ion active Not Available Not Available Not Available naratriptan 2.5 mg tablet active Not Available Not Availabl e Not Available doxycycline hyclate 100 mg tablet 01/10 completed Not Available Not Available Not Available Artificial Tears (polyvinyl alcohol) 1.4 % eye drops active Not Available Not Available Not Available amoxicillin 875 mg-potassium clavulanate 125 mg tablet 01/10 completed Not Available Not Available Not Available Ventolin HFA 90 mcg/actuation aerosol inhaler active Not Available Not Available Not Available neomycin-poly myxin-hydroco rt 3.5 mg-10,000 unit/mL-1 % ear drops,susp active Not Available Not Available N ot Available duloxetine 30 mg capsule,delay ed release 01/10 completed Not Available Not Available Not Available eszopiclone 3 mg tablet active Not Available Not Available No t Available eszopiclone 2 mg tablet active Not Available Not Available No t Available chlorhexidine gluconate 0.12 % mouthwash active Not Available Not Available No t Available diclofenac 1 % topical gel active Not Available Not Availabl e Not Available Mucus Relief ER 600 mg tablet, extended release active Not Available Not Available Not Available Vitals Date Recorded Oxygen saturation Body temperature Heart rate Respiratory rate Systolic And Diastolic Provider Name and Address Organization Details Last Updated DateTime 1 98 % 98.1 [degF] 100 /min 16 /min 140/80 mm[Hg] Not Available [facility] 1 16:47:03 Social History Question Answer Notes LastModified by Organizat [employer]book Details LastModified Time Tobacco Smoking Status Current Every Day Smoker VALERIO Miguel [address], [place], [address], [place] - [facility] 01/10/2021 16:50:19 Which Illicit Or Recreational Drugs Have You Used? CBD Gummies, And Vape Marijuana Information not available 01/10/2021 Sex: Unknown Functional Status Question Answer Note LastModified by Organizat [employer] Details LastModified Time Do you use any illicit or recreational drugs? Yes Information not available 01/10/2021 Do you or have you ever used any other forms of tobacco or nicotine? No Information not available 01/10/2021 What is your level of alcohol consumption? None Information not available 01/10/2021 Mental Status None recorded. Family History Relationship Description Onset Age of this Age Resolved Age Notes LastModified by Organization Details LastModified Time Sister Rheumatism crumplik Not availab le 01/10/2021 16:49:25 Sister Diabetes mellitus crumplik Not available 2020 16:49:34 Medical History Condition Response Diabetes N Coronary Artery Disease N CHF N Parkinson's Disease N Cancer N Stroke N Dementia N Hypothyroidism N Asthma Y COPD N Depression N High Cholesterol N Rheumatoid Arthritis N Pulmonary Embolism N Hypertension N Osteoporosis N A-fib N Kidney Disease N Gynecological HistoryNo gynecological history recorded. Obstetrics History GPAL:G 0 P 0 0 0 0 Immunizations Vaccine Type Date Status Note Provider Nam e and Address Organization Details Recorded Time SARS-COV-2 (COVID-19) vaccine, UNSPECIFIED 1 completed VALERIO Miguel [address], [place], [address], [place] - [facility] 01/10/2021 16:48:13 Past Encounters Encounter ID Performer Location Encounter Start Date Encounter Closed Date Diagnosis/Indication Diagnosis SNOMED-CT Code Diagnosis ICD10 Code Diagnosis IMO Codes Diagnosis Note [id number] VALERIO Ellison [facility] [address] [place] [address] 01/10/2021 16:22:09 01/15/2021 09:32:33 Candidiasis of mouth [id number] B37.0 Health Concerns Section Related Observation LastModified by Organization Detai ls LastModified Time None Recorded Concern Status LastModified by Organization Details LastModified Time None Recorded Advance Directives Directive None Recorded Payers Insurance Date Sequence Insurance Name Policy Number Policy Lebron Covered Member ID Lebron Member ID Guarantor Name 01/09/2021 1 *SELF PAY* Lorelei Emmanuel [id number] Lorelei Emmanuel 01/15/2021 1 [facility] - DOS PRIOR TO 2022 - DUAL ELIGIBLE (MEDICARE REPLACEMENT/ADV ANTAGE - HMO) Lorelei Emmanuel [id number] Lorelei Emmanuel Notes Date Note Type Note Provider Name and Address Organization Details Recorded Time 01/10/2021 text/html 45 YO F new to DH and provider. W/o notable PMH.Has white patch on tongue. Has seen dentist for this. Has been prescribed chlorhexidine and clotrimazole troches for this condition w/ some effectiveness but the thrush s still present.Been ongoing for a few months of worse.patient does not have sore throat or trouble swallowing. Denies fevers/chills, sore throat, difficulty swallowing.Has hx of thrush diagnosed by dentist and it has been an on and off issue for her for years. She has f/u w/ them next week. VALERIO Miguel [address], [place], [address], [place] - [facility] 01/10/2021 17:35:56 OBGyn Episode No OBEpisode recorded.
--- OUTSIDE RECORDS SUMMARY | 2025-01-18 23:24 | XMS_ITS | Data Portability ---
Author Organization [facility], [facility] Address [address] [place] [phone] Care Team Providers Care Sales Department Supervisor Name Role Phone HIM CCA OTHER Assessment Encounter Date Assessment Date Assessment LastModified by Organization Details LastModified Time 03/11/2024 03/11/2024 I provided real -time medical direction via phone for this encounter and was available for additional phone-based assistance as needed. I have reviewed and agree with the Assessment and Plan as documented by the Tail Worker. Patient given the opportunity to ask questions. Our service contacted for an assessment of: Viral URI symptoms and right ear pain As per above, patient with approximately several days of viral URI symptoms and developed into right ear pain. Denies fever or chills. Denies chest pain, shortness of breath, dyspnea on exertion. Positive nasal congestion and dry cough. Positive sick contacts. Per special projects manager on the scene, vital signs are stable and patient is afebrile. No wheezing heard on exam. COVID and Flu are both negative. No increased work of breathing and no distress. Impression: Common cold and viral URI Plan: Continue with oulf-jxs-vguypon medications to control symptoms. Red flags discussed [...] Ag, QL IA, respiratory specimen 2024 025 [facility], [address] [place] [address], [phone] 5 21:48:55 rapid flu (A+B) 2024 [facility], [address] [place] [address], [phone] 5 21:49:11 rapid SARS CoV 2 Ag, QL IA, respiratory specimen [address], [address] [place] [address], [phone] 5 15:33:38 rapid flu (A+B) [address], [address] [place] [address], [address] [place] [address] 15:33:38 Referral None recorded. Procedures None recorded. Surgeries None recorded. Imaging None recorded. Medication Orders amoxicillin 875 mg-potassiu m clavulanate 125 mg tablet 2024 025 [id number] [address] [place], [address], 20:12:06 amoxicillin 875 mg-potassiu m clavulanate 125 mg tablet 2024 025 [id number] [address] [place], [address], 20:12:04 Lactobacill us acidophilus 1 billion cell tablet 2024 025 [id number] [address] [place], [address], 5 20:12:06 acetaminoph en 500 mg tablet 2024 025 [id number] [place], [address], 5 20:12:04 acetaminoph en 325 mg tablet 2024 025 [id number], [address] [place], [address], 20:12:07 amoxicillin 875 mg tablet 2024 025 [id number], [address] [place], [address], 15:33:39 Patient TargetsNo targets recorded. Patient InstructionsNo instructions recorded. Reason for Referral None Reported. Results Created Date Observation Date Name Description Value Unit Range Abnormal Flag Note LastModifiedBy Organization Detail LastModifiedTime 03/11/19 25 03/11/2024 rapid flu (A+B) Flu negati ve Not Available [facility] ed [address] [place] [address], [id number] 03/11/2024 15:32:29 03/11/19 25 03/11/2024 rapid SARS CoV 2 Ag, QL IA, respi rator y speci men rapid SARS CoV 2 Ag, QL IA, respiratory specimen negati ve Not Available [facility] ed [address] [place] [address], [phone] 03/11/2024 15:32:28 Result Notes None recorded. Medical Equipment None Reported. Allergies Allergen ID Allergen Name Allergen Category Reaction Reaction Severity Criticality Documentation Date Start Date Code Code System Note Provider Name and Address Organization Details Recorded Time 37776 nortripty line medicatio n Not available Not [...] rate Heart rate Body height Oxygen saturation Body temperature Systolic And Diastolic Provider Name and Address Organization Details Last Updated DateTime 5 81716.6 64 g 16 /min 66 /min 167.64 cm 97 % 99.1 [degF] 124/90 mm[Hg] Not Available [employer] 5 12:54:29 Date Recorded Body weight Body temperature Respiratory rate Body height Heart rate Oxygen saturation Systolic And Diastolic Provider Name and Address Organization Details Last Updated DateTime 5 70066.6 g 98.4 [degF] 14 /min 167.64 cm 68 /min 98 % 129/80 mm[Hg] Not Available [employer] 5 20:06:30 Social History None recorded. Functional Status None recorded. Mental Status None recorded. Family History Nothing Reported. Medical History No medical history recorded. Gynecological HistoryNo gynecological history recorded. Obstetrics History GPAL:G 0 P 0 0 0 0 Past Encounters Encounter ID Performer Location Encounter Start Date Encounter Closed Date Diagnosis/Indication Diagnosis SNOMED-CT Code Diagnosis ICD10 Code Diagnosis IMO Codes Diagnosis Note [id number] Radha Chase MD [facility] [address] [place] [phone] 03/11/2024 12:35:15 03/14/2024 16:19:10 Acute otitis media 1319389 H66.91 [id number] MATHIEU DRAKE MD [facility] - [address] [phone] 05/24/2024 19:47:57 05/24/2024 21:08:42 Acute right otitis media 720698754 H66.91 [id number] Evaluation in the field was performed by my special projects manager colleague, as noted above, I provided real-time [...] 98%, Room Air at RestTemper atures 98.4 FExam : Alert, awake, oriented, in no acute [...] media. First dose administer ed by the special projects manager. Patient instructed to continue taking one tablet orally twice daily for 7 days.-Acet aminophen 1 gram: Administer ed to help alleviate pain. Prescripti on sent to the patient s pharmacy for ongoing pain management as [...] if no improvemen t is noted within 48 7 2 hours, or sooner if symptoms [...] Member ID Lebron Member ID Guarantor Name 05/24/2024 1 [facility] - DOS ON OR AFTER 2022 - DUAL ELIGIBLE - [facility] OPTIONS AND ONE CARE (MEDICARE REPLACEMENT/ADV ANTAGE - HMO) Lorelei Emmanuel [id number] Lorelei Kenyetta Emmanuel Notes Date Note Type Note Provider [...] at 03/11/2024 - 09:37 Comments: Reviewed HPI Tail Worker Organization Information for Tony Herron Business Legal Name: [employer] Address: [address] [place] [id number], Detail Technician: Jimmy Villanueva MD CLIA No.: [id number] Tail Worker POC Test Results from Tony Herron Rapid COVID antigen (13:05:48) COVID: - Attachments uploaded as part of this test result can be found under Documents section. Rapid influenza antigen (13:05:49) Flu: - Attachments uploaded as part of this test result can be found under Documents section. .................... .................... .................... .................... .................... .................... .................... . Tail Worker Note From Tony Herron: 48 yo F [...] pain. Cough. Headache. Tiredness. Last sinus infection Nov 2023. Pt denies CP, ABD, N/V/D Assessment: Facial tenderness. Lungs clear, slight congestions upper. No BLE edema. Pt speaks in full sentences. Pt reports history of: Chronic otitis media or Sinusitis. Fibromyalgia Asthma Allergies: Nortriptyline. Tylenol upsets her. [address]: [address] Kessler MD Consult: 10 Days of Amoxicillin. Norma Selser cold and flu Dayquil. Rx called in. Discussed red flags with pt. .................... .................... .................... .................... .................... .................... .................... . [facility] Consulted: Radha Chase .................... .................... .................... .................... .................... .................... .................... . Disposition: Fulfilled Radha Chase MD [address] [place] [address],[address] [facility], [place], [phone] [employer] 03/11/2024 15:35:35 05/24/2024 text/html ROS as noted in the HPI CRC Nurse Triage Notes (Kary Naidu): Reason [...] Disorder, Migraine PMH Reviewed at 05/24/2024 - : Allergies Reviewed at 05/24/2024 - : Comments: [...] signs of when to seek emergency care. Tail Worker Organization Information for Srinivasa Paz [employer] Name: [facility] [employer] Address: [address] [place] [address], [place] [address], Detail Technician: Danilo Delacruz MD IA No.: [id number] Tail Worker POC Test Results from Srinivasa Paz Rapid COVID antigen (20:07:22) COVID: - Rapid influenza antigen (20:07:22) Flu: - .................... .................... .................... .................... .................... .................... .................... . Tail Worker Note From Srinivasa Paz: Patient alert and [...] extremities unremarkable. Pictures of ears in documents. [facility] orders Augmentin Tylenol PO now and will prescribe more to patient local pharmacy. Red flags patient education discussed. Patient demonstrates understanding of care plan. [facility] Lab Orders: rapid SARS CoV 2 Ag, QL IA, respiratory specimen: Performed rapid flu (A+B): Performed [facility] Medication Orders: amoxicillin 875 mg-potassium clavulanate 125 mg tablet: Administered acetaminophen 500 mg tablet: Administered .................... .................... .................... .................... .................... .................... .................... . [facility] Consulted: Mathieu Drake .................... .................... .................... .................... .................... .................... .................... . Disposition: Fulfilled MATHIEU DRAKE MD [address] [facility],[address] [facility], [place], [phone], [employer] C[employer] 05/24/2024 20:40:10 OBGyn Episode No OBEpisode recorded.
== END 2025-01-18 16:42 | disposition home or self-care (01) ==
LOC: HO.HOP 16:42
PROVIDERS: PCP Nurse Practitioner Family; Visit Provider Clinical Nurse Specialist Psychiatric/Mental Health
DX: F43.12 Post-traumatic stress disorder, chronic (principal); F41.0 Panic disorder [episodic paroxysmal anxiety]
CPT/HCPCS: 99213